=== PATIENT | female | born 1980 | race Caucasian/White ===

== ENCOUNTER 2016-07-17 21:19 | Emergency (ER) | payer OTHER ==
[2016-07-17 21:25] VITALS: BP 122/68; PULSE 81; TEMP 98.2; BMI 22.4
[2016-07-17] MEDS ORDERED: SULFAMETHOXAZOLE/TRIMETHOPRIM 800MG/160MG D.S. TABLET PO ONE (21:53)
--- NOTE | 2016-07-17 21:53 | PDOC ---
History of Present Illness - General Chief Complaint: Wound Stated Complaint: RT LEG PAIN Time Seen by Provider: 07/17/16 21:23 History Source: Patient Exam Limitations: No Limitations - History of Present Illness Initial Comments: This is a 36-year-old female who comes in complaining of a abscess secondary to an infected ingrown hair in her right inner thigh area. Patient said that she was able to remove the ingrown hair and express a fair amount of pus from the area. However patient said it is still very painful so she comes in for evaluation and possible incision and drainage of the area. Patient denies any fevers or chills. Patient is otherwise healthy. PAST MEDICAL HISTORY: no significant history PAST SURGICAL HISTORY: no significant history FAMILY HISTORY: no pertinant history SOCIAL HISTORY: Pt lives with family and is employed. MEDICATIONS: reviewed ALLERGIES: As per nursing notes Review of Systems General: No fevers or chills, no weakness, no weight loss HEENT: No change in vision. No sore throat,. No ear pain CardioVascular: No chest pain or shortness of breath Respiratory:No cough, or wheezing. Gastrointestinal: no nausea, vomitting, diarrhea or constipation, No rectal bleeding Genitourinary: No dysuria, hematuria, or frequency Musculoskeletal: No joint or muscle pain or swelling Neurologic: No headache, vertigo, dizziness or loss of consciousness Psychiatric: nor depression Skin: Inner thigh abscess Endocrine: no increased thirst or abnormal weight change Allergic: no skin or latex allergy All other systems reviewed and normal GENERAL: The patient is awake, alert, and fully oriented, in no acute distress. HEAD: Normal with no signs of trauma. EYES: Pupils equal, round and reactive to light, extraocular movements intact, sclera anicteric, conjunctiva clear. EXTREMITIES: Normal range of motion, no edema. Right inner thigh area there is a pointing abscess in the upper inner thigh area with some palpable collection. NEUROLOGICAL: Normal speech, normal gait. PSYCH: Normal mood, normal affect. SKIN: Warm, Dry, normal turgor, no rashes or lesions noted. Procedure incision and drainage of abscess Skin overlying the abscess was cleaned with Betadine and then anesthetized with 1% lidocaine no epinephrine via local injection Scalpel was used to open the abscess cavity with only a small amount of purulence expressed. Loculations were broken up and abscess cavity was packed with iodoform gauze. Sterile dressing was applied. Assessment and plan: This is a 36-year-old female with a superficial skin abscess secondary to an infected hair follicle. Abscess was incised and drained and packing placed in the cavity. Patient given instructions for follow-up removal of the packing and care of the infection. Patient discharged home. Past History - Past Medical History Allergies/Adverse Reactions: Allergies Allergy/AdvReac Type Severity Reaction Status Date / Time No Known Allergies Allergy Verified 07/17/16 21:20 Home Medications: Ambulatory Orders Sulfamethoxazole/Trimethoprim [Bactrim DS -] 1 tab PO BID #14 tablet 07/17/16 Other medical history: DENIES - Immunization History Immunization Up to Date: Yes - Psycho/Social/Smoking Cessation Hx Anxiety: No Suicidal Ideation: No Smoking Status: No Smoking History: Former smoker Have you smoked in the past 12 months: No Number of Cigarettes Smoked Daily: 0 Information on smoking cessation initiated: No 'Breaking Loose' booklet given: 04/09/15 Hx Alcohol Use: No Drug/Substance Use Hx: No Substance Use Type: None *Physical Exam - Vital Signs Last Vital Signs Temp Pulse Resp BP Pulse Ox 98.2 F 81 19 122/68 99 07/17/16 21:19 07/17/16 21:19 07/17/16 21:19 07/17/16 21:19 07/17/16 21:19 *DC/Admit/Observation/Transfer Diagnosis at time of Disposition: Abscess - Discharge Dispostion Disposition: HOME Condition at time of disposition: Improved - Prescriptions Prescriptions: Sulfamethoxazole/Trimethoprim [Bactrim DS -] 1 tab PO BID #14 tablet - Patient Instructions Printed Discharge Instructions: DI for Skin Abscess Additional Instructions: Tylenol or Motrin as needed for pain. Remove the packing in 24 hours and start hot soaks to the area. Take Bactrim 1 tablet twice a day for 7 days. Return to the emergency department immediately with ANY new, persistent or worsening symptoms. Continue any medications as previously prescribed by your physician. You should follow up with your primary doctor as soon as possible regarding today's emergency department visit. . Please make sure your doctor reviews the results of your emergency evaluation. Thank you for coming to the Emergency Department today for your care. It was a pleasure to see you today. Please note that your evaluation is INCOMPLETE until you follow-up with your doctor.
[2016-07-17] MEDS ORDERED: SULFAMETHOXAZOLE/TRIMETHOPRIM 800MG/160MG D.S. TABLET ONE (21:57)
== END 2016-07-17 22:05 | disposition home or self-care (01) ==
LOC: FER 21:19
DX: L02.415 Cutaneous abscess of right lower limb (principal); Z87.891 Personal history of nicotine dependence
CPT/HCPCS: 99282-25

== ENCOUNTER 2016-07-19 05:46 | Emergency (ER) | payer OTHER ==
[2016-07-19] MEDS ORDERED: DALBAVANCIN HCL 1,500 MG in DEXTROSE 5%-WATER - 500 ML IVPB ONE (05:52)
[2016-07-19 05:54] VITALS: BP 129/69; PULSE 97; TEMP 98.4; BMI 22.4
[2016-07-19] MEDS ORDERED: KETOROLAC TROMETHAMINE 30 MG/1 ML VIAL IVPUSH ONE (05:56)
--- NOTE | 2016-07-19 05:58 | PDOC ---
History of Present Illness - General Chief Complaint: Revisit,Wound Recheck Stated Complaint: WOUND RECHECK Time Seen by Provider: 07/19/16 05:52 History Source: Patient Exam Limitations: No Limitations - History of Present Illness Initial Comments: 07/19/16 05:54 This is a 36-year-old female who comes in for wound check. And states she is having difficulty tolerating by mouth's. Patient was seen by me yesterday and had incision and drainage of an abscess in her right thigh. Patient remove the packing last night and started hot soaks. Patient is currently taking Bactrim DS for the infection as MRSA is the likely organism. However cultures were not sent at the time of the incision and drainage. 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 Due to the rapid and aggressive nature of the infection MRSA is a concern. PAST MEDICAL HISTORY: no significant history PAST SURGICAL HISTORY: no significant history FAMILY HISTORY: no pertinant history SOCIAL HISTORY: Pt lives with family and is employed. MEDICATIONS: reviewed ALLERGIES: As per nursing notes Review of Systems General: No fevers or chills, no weakness, no weight loss HEENT: No change in vision. No sore throat,. No ear pain CardioVascular: No chest pain or shortness of breath Respiratory:No cough, or wheezing. Gastrointestinal: no nausea, vomitting, diarrhea or constipation, No rectal bleeding Genitourinary: No dysuria, hematuria, or frequency Musculoskeletal: No joint or muscle pain or swelling Neurologic: No headache, vertigo, dizziness or loss of consciousness Psychiatric: nor depression Skin: No rashes or easy bruising Endocrine: no increased thirst or abnormal weight change Allergic: no skin or latex allergy All other systems reviewed and normal GENERAL: The patient is awake, alert, and fully oriented, in no acute distress. HEAD: Normal with no signs of trauma. EYES: Pupils equal, round and reactive to light, extraocular movements intact, sclera anicteric, conjunctiva clear. EXTREMITIES: Normal range of motion, no edema. Right Thigh: There is erythema, warmth and swelling to the area of the abscess. There is no purulence or drainage from the area at this time. There is no ascending lymphangitis. There is no palpable associated vascular cord. Femoral pulses are palpable and normal. NEUROLOGICAL: Normal speech, normal gait. PSYCH: Normal mood, normal affect. SKIN: Warm, Dry, normal turgor, no rashes or lesions noted. Assessment and plan: This is a 36-year-old female who is having difficulty tolerating the by mouth medication that she needs to take for a presumptive MRSA infection of her right thigh. Patient had incision and drainage of the thigh and it is improved but still significantly red, tender, swollen. I see no evidence of systemic spread at this time however in discussion with Dr. Nagy from infectious disease the decision to give her a one-time dose of Dalvance was made. It has the advantage of long-term coverage for MRSA and is a one-time IV dose as she is having difficulty tolerating the by mouth medication. Patient given [place]'s in in the ED and discharged. 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 Past History - Past Medical History Allergies/Adverse Reactions: Allergies Allergy/AdvReac Type Severity Reaction Status Date / Time No Known Allergies Allergy Verified 07/19/16 05:48 Home Medications: Ambulatory Orders Sulfamethoxazole/Trimethoprim [Bactrim DS -] 1 tab PO BID #14 tablet 07/17/16 - Immunization History Immunization Up to Date: Yes - Psycho/Social/Smoking Cessation Hx Anxiety: No Suicidal Ideation: No Smoking Status: No Smoking History: Former smoker Have you smoked in the past 12 months: No Number of Cigarettes Smoked Daily: 0 'Breaking Loose' booklet given: 04/09/15 Hx Alcohol Use: No Drug/Substance Use Hx: No Substance Use Type: None *DC/Admit/Observation/Transfer Diagnosis at time of Disposition: Abscess - Discharge Dispostion Disposition: HOME Condition at time of disposition: Good - Patient Instructions Additional Instructions: Return to the emergency department immediately with ANY new, persistent or worsening symptoms. Continue any medications as previously prescribed by your physician. You should follow up with your primary doctor as soon as possible regarding today's emergency department visit. . Please make sure your doctor reviews the results of your emergency evaluation. Thank you for coming to the Emergency Department today for your care. It was a pleasure to see you today. Please note that your evaluation is INCOMPLETE until you follow-up with your doctor.
== END 2016-07-19 07:01 | disposition home or self-care (01) ==
LOC: FER 05:46
PROC: 3E03329 Introduction of Other Anti-infective into Peripheral Vein, Percutaneous Approach (ICD-10-PCS; principal; 2016-07-19)
PROC: 3E0333Z Introduction of Anti-inflammatory into Peripheral Vein, Percutaneous Approach (ICD-10-PCS; 2016-07-19)
DX: L02.91 Cutaneous abscess, unspecified (principal); Z87.891 Personal history of nicotine dependence
CPT/HCPCS: 99281-25; J0875

== ENCOUNTER 2017-05-03 20:55 | Emergency (ER) | payer OTHER ==
--- NOTE | 2017-05-03 20:58 | PDOC ---
History of Present Illness - General History Source: Patient Exam Limitations: No Limitations - History of Present Illness Initial Comments: 05/03/17 21:30 36 year old female, with no significant past medical history, who presents to the emergency room complaining of 4 days of fever, sore throat, right ear ache, dry cough, and body aches. The patient states that the fever was 100.9 at its highest. She reports that her son was recently sick with Strep throat. Denies nausea, vomiting. Allergies: NKA PCP: None <Yoana Ferrell - Last Filed: 05/03/17 21:30> <Sarahi Anguiano - Last Filed: 05/04/17 03:45> - General Chief Complaint: Pain, Acute Stated Complaint: SORE THROAT Time Seen by Provider: 05/03/17 20:58 Past History <Yoana Ferrell - Last Filed: 05/03/17 21:30> - Immunization History Immunization Up to Date: Yes - Suicide/Smoking/Psychosocial Hx Smoking Status: No Smoking History: Former smoker Have you smoked in the past 12 months: No Number of Cigarettes Smoked Daily: 0 'Breaking Loose' booklet given: 04/09/15 Hx Alcohol Use: No Drug/Substance Use Hx: No Substance Use Type: None <Sarahi Anguiano - Last Filed: 05/04/17 03:45> - Past Medical History Allergies/Adverse Reactions: Allergies Allergy/AdvReac Type Severity Reaction Status Date / Time No Known Allergies Allergy Verified 05/03/17 20:59 Home Medications: Ambulatory Orders Acetaminophen [Tylenol -] 1,500 mg PO Q6H 05/03/17 Azithromycin 250 mg PO DAILY #4 tablet 05/03/17 Review of Systems - Review of Systems Able to Perform ROS?: Yes Comments:: 05/03/17 21:31 GENERAL/CONSTITUTIONAL: +fever. No chills. No weakness. HEAD, EYES, EARS, NOSE AND THROAT: +Sore throat, +right ear ache, No change in vision. No ear discharge. CARDIOVASCULAR: No chest pain or shortness of breath. RESPIRATORY: +dry cough. No wheezing, or hemoptysis. GASTROINTESTINAL: No nausea, vomiting, diarrhea or constipation. GENITOURINARY: No dysuria, frequency, or change in urination. MUSCULOSKELETAL: No joint or muscle swelling or pain. No neck or back pain. SKIN: No rash NEUROLOGIC: No headache, vertigo, loss of consciousness, or change in strength/ sensation. ENDOCRINE: No increased thirst. No abnormal weight change. HEMATOLOGIC/LYMPHATIC: No anemia, easy bleeding, or history of blood clots. ALLERGIC/IMMUNOLOGIC: No hives or skin allergy. <Yoana Ferrell - Last Filed: 05/03/17 21:30> *Physical Exam - Vital Signs Last Vital Signs Temp Pulse Resp BP Pulse Ox 100.9 F H 103 H 20 129/79 99 05/03/17 20:56 05/03/17 20:56 05/03/17 20:56 05/03/17 20:56 05/03/17 20:56 - Physical Exam Comments: 05/03/17 21:32 GENERAL: Awake, alert, and fully oriented, in no acute distress HEAD: No signs of trauma EYES: PERRLA, EOMI, sclera anicteric, conjunctiva clear ENT: Auricles normal inspection, hearing grossly normal, nares patent, + moderate erythema of the pharynx without exudates or edema.+ Mild right maxillary sinus tenderness. Moist mucosa NECK: +Bilateral tender,enlarged cervical lymphadenopathy. Normal ROM, supple, no, JVD, or masses LUNGS: Breath sounds equal, clear to auscultation bilaterally. No wheezes, and no crackles HEART: Regular rate and rhythm, normal S1 and S2, no murmurs, rubs or gallops ABDOMEN: Soft, nontender, normoactive bowel sounds. No guarding, no rebound. No masses EXTREMITIES: Normal range of motion, no edema. No clubbing or cyanosis. No cords, erythema, or tenderness NEUROLOGICAL: Cranial nerves II through XII grossly intact. Normal speech, normal gait SKIN: Warm, Dry, normal turgor, no rashes or lesions noted. <Yoana Ferrell - Last Filed: 05/03/17 21:30> ED Treatment Course - ADDITIONAL ORDERS Additional order review: 05/03/17 21:00 Group A Strep Rapid Antigen - Final Throat NEGATIVE FOR THE ANTIGEN OF BETA HEMOLYTIC STREP GROUP A - Medications Given in the ED: ED Medications Discontinued Medications Generic Name Dose Route Start Last Admin Trade Name Freq PRN Reason Stop Dose Admin Azithromycin 500 mg 05/03/17 21:25 05/03/17 21:29 Zithromax - PO 12/11/17 21:26 500 mg ONCE ONE Administration Ibuprofen 600 mg 05/03/17 21:24 05/03/17 21:29 Motrin - PO 05/03/17 21:25 600 mg ONCE ONE Administration <Yoana Ferrell - Last Filed: 05/03/17 21:30> Medical Decision Making - Medical Decision Making Documentation has been prepared under my direction and personally reviewed by me in its entirety. I attest that this documented accurately reflects all work, treatment, procedures and medical decision making performed by me. As noted above, this 36-year-old woman presents with progressive sore throat and fever for the last few days. Of note, patient's son and his girlfriend have had strep pharyngitis very recently. Exam notable for fever and erythematous pharynx with bilateral tender lymphadenopathy. Although quick strep negative, will empirically start azithromycin (Z-[id number]). No work for the next 48 hours. Throat culture pending Patient should hydrate carefully and rest, continuing antibiotic treatment as prescribed. She should return to the emergency room if she has worsening pain/ difficulty swallowing, persistent high fever. <Sarahi Anguiano - Last Filed: 05/04/17 03:45> *DC/Admit/Observation/Transfer - Attestations Scribe Attestion: 05/03/17 21:32 Documentation prepared by JORDY Baum, acting as medical staff manager for Sarahi Anguiano MD. <Yoana Ferrell - Last Filed: 05/03/17 21:30> <Sarahi Anguiano - Last Filed: 05/04/17 03:45> Diagnosis at time of Disposition: Acute pharyngitis Qualifiers: Pharyngitis/tonsillitis etiology: unspecified etiology Qualified Code(s): J02.9 - Acute pharyngitis, unspecified - Discharge Dispostion Disposition: HOME Condition at time of disposition: Stable - Prescriptions Prescriptions: Azithromycin 250 mg PO DAILY #4 tablet - Patient Instructions Printed Discharge Instructions: DI for Pharyngitis/Tonsillopharyngitis -- Adult Additional Instructions: Drink plenty of fluids;rest Motrin/Tylenol as needed for pain Azithromycin 250 mg daily for the next 4 days No work for the next 2 days - Post Discharge Activity Forms/Work/School Notes: Back to Work
[2017-05-03 21:06] VITALS: BP 129/79; PULSE 103; TEMP 100.9; BMI 23.3
[2017-05-03] MEDS ORDERED: IBUPROFEN 600 MG TABLET (FP) PO ONE ×2 (21:22→21:24)
[2017-05-03] MEDS ORDERED: AZITHROMYCIN 250 MG TABLET ONE (21:22)
[2017-05-03] MEDS ORDERED: AZITHROMYCIN 250 MG TABLET PO ONE (21:25)
== END 2017-05-03 21:36 | disposition home or self-care (01) ==
LOC: FER 20:55
DX: J02.9 Acute pharyngitis, unspecified (principal)
CPT/HCPCS: 87070; 87430; 99282-25

== ENCOUNTER 2018-06-29 19:22 | Emergency (ER) | payer OTHER ==
[2018-06-29 19:30] VITALS: TEMP 97.7; BMI 24.0
[2018-06-29] MEDS ORDERED: diphenhydrAMINE HCL 50 MG CAPSULE ONE (19:41)
[2018-06-29] MEDS ORDERED: diphenhydrAMINE HCL 25 MG CAPSULE (FP) PO ONE (19:43)
[2018-06-29] MEDS ORDERED: predniSONE 20 MG TABLET (UD) PO ONE (20:18)
[2018-06-29] MEDS ORDERED: predniSONE 10 MG TABLET (UD) ONE (20:21)
[2018-06-29] MEDS ORDERED: FAMOTIDINE 20 MG TABLET PO ONE (20:21)
[2018-06-29] MEDS ORDERED: FAMOTIDINE 20 MG TABLET ONE (20:21)
--- NOTE | 2018-06-29 21:24 | PDOC ---
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 Pt reports chest and b/l UE hives, facial itching, lip swelling possibly due to contact with disinfecting wipes. Pt denies nausea, vomiting, abd pain, throat closing, CP, SOB, or weakness. Reports similar reaction to purple wipes a few years ago, but has since used them without reaction. Pt has been in usual state of good health, denies recent fevers, chills, headaches. Past History - Past Medical History Allergies/Adverse Reactions: Allergies Allergy/AdvReac Type Severity Reaction Status Date / Time No Known Allergies Allergy Verified 06/29/18 19:23 Home Medications: Ambulatory Orders NK [No Known Home Medication] 06/29/18 COPD: No - Reproductive History Polycystic Ovaries: Yes Therapeutic (s) & number: No - Immunization History Immunization Up to Date: Yes - Suicide/Smoking/Psychosocial Hx Smoking Status: No Smoking History: Never smoked Have you smoked in the past 12 months: No Number of Cigarettes Smoked Daily: 2 Information on smoking cessation initiated: No 'Breaking Loose' booklet given: 12/06/17 Hx Alcohol Use: No Drug/Substance Use Hx: No Substance Use Type: None Review of Systems - Review of Systems Comments:: 06/29/18 21:24 "GENERAL/CONSTITUTIONAL: No fever or chills. No weakness. HEAD, EYES, EARS, NOSE AND THROAT: No change in vision. No ear pain or discharge. No sore throat. CARDIOVASCULAR: No chest pain, no shortness of breath, no loss of consciousness RESPIRATORY: No cough, wheezing, or hemoptysis. GASTROINTESTINAL: No nausea, vomiting, diarrhea or constipation. GENITOURINARY: No dysuria, frequency, or change in urination. MUSCULOSKELETAL: No joint or muscle swelling or pain. No neck or back pain. SKIN: Hives to chest and arms, facial itching NEUROLOGIC: No vertigo, no change in strength/sensation. ENDOCRINE: No increased thirst. No abnormal weight change. HEMATOLOGIC/LYMPHATIC: No anemia, easy bleeding, or history of blood clots. ALLERGIC/IMMUNOLOGIC: No hives or skin allergy. *Physical Exam - Vital Signs Last Vital Signs Temp Pulse Resp BP Pulse Ox 97.7 F 96 H 20 137/94 99 06/29/18 19:23 06/29/18 19:23 06/29/18 19:23 06/29/18 19:23 06/29/18 19:23 - Physical Exam Comments: 06/29/18 21:25 "GENERAL: Awake, alert, and fully oriented, in no acute distress. HEAD: No signs of trauma EYES: PERRLA, EOMI, sclera anicteric, conjunctiva clear ENT: No tongue or lip swelling, Auricles normal inspection, hearing grossly normal, nares patent, oropharynx clear without exudates. Moist mucosa NECK: Nontender, no stepoffs, Normal ROM, supple, no lymphadenopathy, JVD, or masses LUNGS: no stridor, Breath sounds equal, clear to auscultation bilaterally. No wheezes, and no crackles HEART: Regular rate and rhythm, normal S1 and S2, no murmurs, rubs or gallops ABDOMEN: Soft, nontender, normoactive bowel sounds. No guarding, no rebound. No masses EXTREMITIES: Normal range of motion, no edema. No clubbing or cyanosis. No cords, erythema, or tenderness NEUROLOGICAL: Cranial nerves II through XII intact. 5/5 strength and sensation in all extremities, Normal speech, normal gait, normal cerebellar function SKIN: + hives to chest and arms, mild flushing to face Moderate Sedation - Procedure Monitoring Vital Signs: Procedure Monitoring Vital Signs Temperature 97.7 F 06/29/18 19:23 Pulse Rate 96 H 06/29/18 19:23 Respiratory Rate 20 06/29/18 19:23 Blood Pressure 137/94 06/29/18 19:23 O2 Sat by Pulse Oximetry (%) 99 06/29/18 19:23 ED Treatment Course - Medications Given in the ED: ED Medications Discontinued Medications Generic Name Dose Route Start Last Admin Trade Name Freq PRN Reason Stop Dose Admin Diphenhydramine HCl 50 mg 06/29/18 19:43 06/29/18 19:44 Benadryl - PO 06/29/18 19:44 50 mg ONCE ONE Administration Famotidine 20 mg 06/29/18 20:21 06/29/18 20:22 Pepcid - PO 06/29/18 20:22 20 mg ONCE ONE Administration Prednisone 50 mg 06/29/18 20:18 06/29/18 20:22 Deltasone - PO 06/29/18 20:19 50 mg ONCE ONE Administration Medical Decision Making - Medical Decision Making 06/29/18 21:26 38 F with allergic reaction, possibly to disinfecting wipes. No evidence of airway involvement. - Prednisone, benadryl, pepcid 06/29/18 21:26 Pt reassessed after 2 hours, now has complete resolution of hives and facial itching. Pt is well appearing, with normal vitals. Clinically stable for DC at this time. I discussed the physical exam findings, ancillary test results and final diagnoses with the patient. I answered all of the patient's questions. The patient was satisfied with the care received and felt comfortable with the discharge plan and treatment plan. The patient agrees to follow up with the primary care physician within 24-72 hours. *DC/Admit/Observation/Transfer Diagnosis at time of Disposition: Allergic reaction - Discharge Dispostion Disposition: HOME - Referrals - Patient Instructions Printed Discharge Instructions: DI for General Allergic Reactions Additional Instructions: Follow up with an equipment installation professional for further testing. If you experience worsening rash, lip swelling, hoarseness, difficulty breathing , or any other concerning symptoms, return to the ER immediately. - Post Discharge Activity - Attestations Physician Attestion: 06/29/18 21:27 I, Dr. Jr Diaz MD, attest that this document has been prepared under my direction and personally reviewed by me in its entirety. I further attest, that it accurately reflects all work, treatment, procedures and medical decision -making performed by me.
[2018-06-29 21:35] VITALS: BP 128/67; PULSE 72
== END 2018-06-29 21:36 | disposition home or self-care (01) ==
LOC: FER 19:22
DX: T78.40XA Allergy, unspecified, initial encounter (principal); X58.XXXA Exposure to other specified factors, initial encounter
CPT/HCPCS: 99282-25

== ENCOUNTER 2018-06-30 20:19 | Emergency (ER) | payer OTHER ==
[2018-06-30] MEDS ORDERED: SODIUM CHLORIDE 1,000 ML IV STA (20:22)
[2018-06-30 20:28] VITALS: BP 130/90; PULSE 101; TEMP 98.2; BMI 23.3
--- NOTE | 2018-06-30 20:55 | PDOC ---
History of Present Illness - General Chief Complaint: Pain Stated Complaint: LEG & HIP PAIN Time Seen by Provider: 06/30/18 20:20 - History of Present Illness Initial Comments: 07/01/18 06:39 38yo F hx migraines presents to the ED with b/l proximal LE pain since this morning. Pt states pain is dull, extending from her groin to her knees anteriorly. Pt denies any trauma or falls. States pain improves with pressure to the LE's b/l. Denies any strenuous activity recently, dark urine. Pt has been taking PO benadryl and nyquil today as she had an allergic reaction yesterday. Denies urine retention. She also took prenisone 50mg yesterday for the allergic reaction. Reports gradual onset bitemporal headache as well since this morning. Denies fevers, chills, cp, sob, abd pain, focal weakness/ numbness. Past History - Past Medical History Allergies/Adverse Reactions: Allergies Allergy/AdvReac Type Severity Reaction Status Date / Time No Known Allergies Allergy Verified 06/30/18 20:26 Home Medications: Ambulatory Orders NK [No Known Home Medication] 06/29/18 COPD: No Other medical history: Pt denies - Reproductive History Polycystic Ovaries: Yes Therapeutic (s) & number: No - Immunization History Immunization Up to Date: Yes - Suicide/Smoking/Psychosocial Hx Smoking Status: No Smoking History: Current every day smoker Have you smoked in the past 12 months: Yes Number of Cigarettes Smoked Daily: 2 Information on smoking cessation initiated: No 'Breaking Loose' booklet given: 12/06/17 Hx Alcohol Use: No Drug/Substance Use Hx: No Substance Use Type: None Review of Systems - Review of Systems Comments:: 07/01/18 06:44 GENERAL/CONSTITUTIONAL: No fever or chills. No weakness. HEAD, EYES, EARS, NOSE AND THROAT: No change in vision. No ear pain or discharge. No sore throat. GASTROINTESTINAL: No nausea, vomiting, diarrhea or constipation. GENITOURINARY: No dysuria, frequency, or change in urination. CARDIOVASCULAR: No chest pain or shortness of breath. RESPIRATORY: No cough, wheezing, or hemoptysis. MUSCULOSKELETAL: +LE pain b/l. No neck or back pain. SKIN: No rash NEUROLOGIC: No headache, vertigo, loss of consciousness, or change in strength/ sensation. ENDOCRINE: No increased thirst. No abnormal weight change. HEMATOLOGIC/LYMPHATIC: No anemia, easy bleeding, or history of blood clots. ALLERGIC/IMMUNOLOGIC: No hives or skin allergy. *Physical Exam - Vital Signs Last Vital Signs Temp Pulse Resp BP Pulse Ox 98.2 F 101 H 18 130/90 98 06/30/18 20:26 06/30/18 20:26 06/30/18 20:26 06/30/18 20:26 06/30/18 20:26 - Physical Exam Comments: 07/01/18 06:46 GENERAL: Awake, alert, and fully oriented, in no acute distress EYES: PERRLA, EOMI, sclera anicteric, conjunctiva clear ENT: Nares patent, oropharynx clear without exudates. Moist mucosa LUNGS: Breath sounds equal, clear to auscultation bilaterally. No wheezes, and no crackles HEART: Regular rate and rhythm, normal S1 and S2, no murmurs, rubs or gallops ABDOMEN: Soft, nontender, normoactive bowel sounds. No guarding, no rebound. No masses EXTREMITIES: Normal range of motion, no edema. No cords, erythema, deformities or tenderness NEUROLOGICAL: Normal speech, cranial nerves intact, equal strength and sensation b/l SKIN: Warm, Dry, normal turgor, no rashes or lesions noted. Moderate Sedation - Procedure Monitoring Vital Signs: Procedure Monitoring Vital Signs Temperature 98.2 F 06/30/18 20:26 Pulse Rate 101 H 06/30/18 20:26 Respiratory Rate 18 06/30/18 20:26 Blood Pressure 130/90 06/30/18 20:26 O2 Sat by Pulse Oximetry (%) 98 06/30/18 20:26 ED Treatment Course - LABORATORY CBC & Chemistry Diagram: 06/30/18 21:50 06/30/18 21:50 Medical Decision Making - Medical Decision Making 07/01/18 06:47 38yo F presents to the ED with b/l atraumatic proximal LE pain. Concern for possible rhabdo. Labs including CBC, CMP, CPK wnl. UA wnl. Pt feels improved after fluids. Symptoms maybe 2/2 recent prednisone use or benadryl use or possible myalgias due to viral syndrome. Pt requests DC home, return precautions given. I discussed the physical exam findings, ancillary test results and final diagnoses with the patient. I answered all of the patient's questions. The patient was satisfied with the care received and felt comfortable with the discharge plan and treatment plan. The patient will call their primary care physician within 24 hours to arrange follow-up and will return to the Emergency Department with any new, persistent or worsening symptoms. *DC/Admit/Observation/Transfer Diagnosis at time of Disposition: Leg pain, bilateral - Discharge Dispostion Disposition: HOME Condition at time of disposition: Good Decision to Admit order: No - Referrals - Patient Instructions - Post Discharge Activity - Attestations Physician Attestion: 06/30/18 23:10 I, Dr. Rosina Romeo MD, attest that this document has been prepared under my direction and personally reviewed by me in its entirety. I further attest, that it accurately reflects all work, treatment, procedures and medical decision -making performed by me.
[2018-06-30 22:07] LABS: BASO % 0.3 % (0-2.0); EOS % 0.9 % (0-4.5); HEMATOCRIT 40.3 % (32.4-45.2); HEMOGLOBIN 13.2 GM/dl (10.7-15.3); LYMPH % 25.8 % (8-40); MCHC 32.7 g/dl (32.0-36.0); MEAN CELL VOLUME 88.7 fl (80-96); MEAN PLT VOLUME 11.6 fl (7.5-11.1); PLATELET COUNT 284 K/MM3 (134-434); RBC 4.55 M/mm3 (3.60-5.2); RDW 12.8 % (11.6-15.6); WHITE BLOOD COUNT 16.9 K/mm3 (4.0-10.8)
[2018-06-30 22:08] LABS: ALBUMIN 3.9 g/dl (3.4-5.0); ALK PHOS 76 U/L (45-117); ANION GAP 6 MMOL/L (8-16); BILIRUBIN,TOTAL 0.4 mg/dl (0.2-1); BLOOD UREA NITROGEN 14 mg/dl (7-18); CALCIUM 9.1 mg/dl (8.5-10); CHLORIDE 104 mmol/L (98-107); CO2 24 mmol/L (21-32); CREATININE 0.7 mg/dl (0.55-1.3); GLUCOSE,RANDOM 118 mg/dl (74-106); MAGNESIUM 1.8 mg/dL (1.8-2.4); POTASSIUM 3.5 mmol/L (3.5-5.1); SGOT/AST 21 U/L (15-37); SGPT/ALT 19 U/L (13-61); SODIUM 134 mmol/L (136-145); TOT PROT 7.4 g/dl (6.4-8.2)
[2018-06-30 23:07] LABS: PH,URINE 5.5 (4.5-8); URINE APPEARANCE Clear; URINE BILIRUBIN Negative (NEGATIVE); URINE COLOR Yellow; URINE GLUCOSE (UA) Negative (NEGATIVE); URINE KETONE Negative (NEGATIVE); URINE LEUK ESTERASE Negative (NEGATIVE); URINE NITRITE Negative (NEGATIVE); URINE PROTEIN Negative (NEGATIVE); URINE UROBILINOGEN 0.2 (0.2-1.0)
[2018-06-30 23:23] LABS: EPI CELLS 1+ /HPF
== END 2018-06-30 23:57 | disposition home or self-care (01) ==
LOC: FER 20:19
PROC: 3E0337Z Introduction of Electrolytic and Water Balance Substance into Peripheral Vein, Percutaneous Approach (ICD-10-PCS; principal; 2018-06-30)
DX: M79.604 Pain in right leg (principal); M79.605 Pain in left leg; F17.210 Nicotine dependence, cigarettes, uncomplicated
CPT/HCPCS: 36415; 80053; 81003; 81015; 82550; 83735; 84443; 85025; 99283-25; J7030

== ENCOUNTER 2018-07-12 09:55 | Emergency (ER) | payer OTHER ==
[2018-07-12 09:59] VITALS: BP 131/69; PULSE 99; TEMP 98.1; BMI 23.1
[2018-07-12] MEDS ORDERED: DEXAMETHASONE 4 MG TABLET (FP) PO ONE (10:06)
[2018-07-12] MEDS ORDERED: diphenhydrAMINE HCL 25 MG CAPSULE (FP) PO ONE (10:06)
[2018-07-12] MEDS ORDERED: diphenhydrAMINE HCL 50 MG CAPSULE ONE (10:08)
[2018-07-12] MEDS ORDERED: DEXAMETHASONE SOD PHOSPHATE 10 MG/1 ML VIAL ONE (10:08)
--- NOTE | 2018-07-12 10:13 | PDOC ---
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 Has history of similar reactions but only at work, no known allergies. never anaphylaxis, has been treated successfully with benadryl/ steroids in the past but no official allergy testing yet. no airway/throat issues. cannot recognize any new exposures at home, possibly associated with cleaning solutions used in the ED by environmental. Past History - Past Medical History Allergies/Adverse Reactions: Allergies Allergy/AdvReac Type Severity Reaction Status Date / Time No Known Allergies Allergy Verified 06/30/18 20:26 COPD: No - Reproductive History Polycystic Ovaries: Yes Therapeutic (s) & number: No - Immunization History Immunization Up to Date: Yes - Suicide/Smoking/Psychosocial Hx Smoking Status: No Smoking History: Current some day smoker Have you smoked in the past 12 months: Yes Number of Cigarettes Smoked Daily: 1 Information on smoking cessation initiated: No 'Breaking Loose' booklet given: 12/06/17 Hx Alcohol Use: No Drug/Substance Use Hx: No Substance Use Type: None Review of Systems - Review of Systems Constitutional: No: Chills, Fever HEENTM: No: Throat Swelling, Difficulty Swallowing Respiratory: No: Cough, Shortness of Breath, Stridor, Wheezing Cardiac (ROS): No: Chest Pain ABD/GI: No: Nausea, Vomiting Neurological: No: Headache All Other Systems: Reviewed and Negative *Physical Exam - Vital Signs Last Vital Signs Temp Pulse Resp BP Pulse Ox 98.1 F 99 H 20 131/69 100 07/12/18 09:56 07/12/18 09:56 07/12/18 09:56 07/12/18 09:56 07/12/18 09:56 - Physical Exam Comments: 07/12/18 10:09 afebrile, normal vs well appearing, nad but itching with blotchy urticaria to chest/back and upper arms, starting to develop slight hive above R eyebrow. op clear, no stridor, voice clear lungs clear, no wheezing heart regular Moderate Sedation - Procedure Monitoring Vital Signs: Procedure Monitoring Vital Signs Temperature 98.1 F 07/12/18 09:56 Pulse Rate 99 H 07/12/18 09:56 Respiratory Rate 20 07/12/18 09:56 Blood Pressure 131/69 07/12/18 09:56 O2 Sat by Pulse Oximetry (%) 100 07/12/18 09:56 Medical Decision Making - Medical Decision Making 07/12/18 10:11 healthy 38y/o F with allergic reaction/dermatitis, possible chemical exposure given isolated incidents at hospital. no airway/breathing issues, HD stable. benadryl, decadron with improved itching/rash outpt allergy testing/referral understands return criteria *DC/Admit/Observation/Transfer Diagnosis at time of Disposition: Allergic reaction Qualifiers: Encounter type: initial encounter Qualified Code(s): T78.40XA - Allergy, unspecified, initial encounter - Discharge Dispostion Disposition: HOME Condition at time of disposition: Stable - Referrals Referrals: Veronika Nieto MD [Staff Physician] - - Patient Instructions Printed Discharge Instructions: DI for General Allergic Reactions Additional Instructions: Activity as tolerated. Stay hydrated. You were given a dose of decadron 10mg in the ER, which is a long-acting steroid. Take Benadryl 50mg every 6-8 hours as needed for persistent itching. You should follow up with a alternative financing specialist/job press feeder as soon as possible regarding today's emergency department visit. Return to the emergency department for any new or concerning symptoms, particularly worsening rash, throat swelling/breathing issues like wheezing. - Post Discharge Activity Forms/Work/School Notes: Back to Work
== END 2018-07-12 10:25 | disposition home or self-care (01) ==
LOC: FER 09:55
DX: T78.40XA Allergy, unspecified, initial encounter (principal); F17.210 Nicotine dependence, cigarettes, uncomplicated
CPT/HCPCS: 99281-25

== ENCOUNTER 2018-12-17 08:06 | Emergency (ER) | payer OTHER ==
--- NOTE | 2018-12-17 08:09 | PDOC ---
History of Present Illness - General Chief Complaint: Nausea/Vomiting Stated Complaint: vertigo,nausea,vomiting Time Seen by Provider: 12/17/18 08:09 History Source: Patient Exam Limitations: No Limitations - History of Present Illness Initial Comments: 38 yo F hx migraines presents with vertiginous symptoms that woke her from sleep this morning. Has had nausea, vomiting x3, unable to find a comfortable position due to severe dizziness. +Prior similar symptoms 1 week ago. No known inciting factors, no ameliorating factors. Past History - Past Medical History Allergies/Adverse Reactions: Allergies Allergy/AdvReac Type Severity Reaction Status Date / Time No Known Allergies Allergy Verified 12/17/18 08:07 Home Medications: Ambulatory Orders NK [No Known Home Medication] 12/17/18 COPD: No - Reproductive History Polycystic Ovaries: Yes Therapeutic (s) & number: No - Immunization History Immunization Up to Date: Yes - Suicide/Smoking/Psychosocial Hx Smoking Status: No Smoking History: Current some day smoker Have you smoked in the past 12 months: Yes Number of Cigarettes Smoked Daily: 1 'Breaking Loose' booklet given: 12/06/17 Hx Alcohol Use: No Drug/Substance Use Hx: No Substance Use Type: None Review of Systems - Review of Systems Able to Perform ROS?: Yes Comments:: GENERAL/CONSTITUTIONAL: No fever or chills. No weakness. HEAD, EYES, EARS, NOSE AND THROAT: No change in vision. No ear pain or discharge. No sore throat. CARDIOVASCULAR: No chest pain or shortness of breath. RESPIRATORY: No cough, wheezing, or hemoptysis. GASTROINTESTINAL: +Nausea and vomiting. No diarrhea or constipation. GENITOURINARY: No dysuria, frequency, or change in urination. MUSCULOSKELETAL: No joint or muscle swelling or pain. No neck or back pain. SKIN: No rash. NEUROLOGIC: No headache, vertigo, loss of consciousness, or change in strength/ sensation. ENDOCRINE: No increased thirst. No abnormal weight change. HEMATOLOGIC/LYMPHATIC: No anemia, easy bleeding, or history of blood clots. ALLERGIC/IMMUNOLOGIC: No hives or skin allergy. *Physical Exam - Physical Exam Comments: GENERAL: Awake, alert, and fully oriented, in no acute distress HEAD: No signs of trauma EYES: PERRLA, EOMI, sclera anicteric, conjunctiva clear ENT: Auricles normal inspection, hearing grossly normal, nares patent, oropharynx clear without exudates. Dry mucosa NECK: Normal ROM, supple, no lymphadenopathy, JVD, or masses LUNGS: Breath sounds equal, clear to auscultation bilaterally. No wheezes, and no crackles HEART: Regular rate and rhythm, normal S1 and S2, no murmurs, rubs or gallops ABDOMEN: Soft, nontender, normoactive bowel sounds. No guarding, no rebound. No masses EXTREMITIES: Normal range of motion, no edema. No clubbing or cyanosis. No cords, erythema, or tenderness NEUROLOGICAL: Cranial nerves II through XII grossly intact. Normal speech, normal gait. Motor and sensation intact SKIN: Warm, dry, normal turgor, no rashes or lesions noted. ED Treatment Course - LABORATORY CBC & Chemistry Diagram: 12/17/18 08:13 12/17/18 08:13 Medical Decision Making - Medical Decision Making 12/17/18 09:20 Pt reports improvement. Tolerating PO. Stable for DC home. *DC/Admit/Observation/Transfer Diagnosis at time of Disposition: Vertigo - Discharge Dispostion Disposition: HOME Condition at time of disposition: Stable Decision to Admit order: No - Referrals - Patient Instructions - Post Discharge Activity
[2018-12-17 08:10] VITALS: BMI 23.3
[2018-12-17] MEDS ORDERED: DEXTROSE 5%-NORMAL SALINE 1,000 ML IV ONE (08:10)
[2018-12-17] MEDS ORDERED: ONDANSETRON 4 MG/2 ML VIAL IVPUSH ONE (08:10)
[2018-12-17] MEDS ORDERED: ONDANSETRON 4 MG/2 ML VIAL ONE (08:12)
[2018-12-17] MEDS ORDERED: METOCLOPRAMIDE HCL INJECTION 10 MG/2 ML VIAL IVPB ONE (08:16)
[2018-12-17] MEDS ORDERED: METOCLOPRAMIDE HCL INJECTION 10 MG/2 ML VIAL ONE (08:18)
[2018-12-17 08:30] LABS: BASO % 0.9 % (0-2.0); EOS % 1.7 % (0-4.5); HEMOGLOBIN 14.4 GM/dl (10.7-15.3); LYMPH % 17.8 % (8-40); MCH 29.7 pg (25.7-33.7); MCHC 33.4 g/dl (32.0-36.0); MEAN PLT VOLUME 11.4 fl (7.5-11.1); MONO % 7.9 % (3.8-10.2); NEUT % 71.7 % (42.8-82.8); PLATELET COUNT 321 K/MM3 (134-434); RBC 4.84 M/mm3 (3.60-5.2); RDW 12.5 % (11.6-15.6); WHITE BLOOD COUNT 11.1 K/mm3 (4.0-10.8)
[2018-12-17 08:51] VITALS: BP 119/90; PULSE 89; TEMP 98.2
[2018-12-17 08:53] LABS: ALBUMIN 4.2 g/dl (3.4-5.0); BILIRUBIN,TOTAL 0.7 mg/dl (0.2-1); CALCIUM 9.4 mg/dl (8.5-10); CREATININE 0.7 mg/dl (0.55-1.3); POTASSIUM 3.8 mmol/L (3.5-5.1); TOT PROT 7.7 g/dl (6.4-8.2)
[2018-12-17] MEDS ORDERED: MECLIZINE HCL 25 MG TABLET (FP) PO ONE (09:04)
[2018-12-17] MEDS ORDERED: MECLIZINE HCL 25 MG TABLET (FP) ONE (09:06)
== END 2018-12-17 09:23 | disposition home or self-care (01) ==
LOC: FER 08:06
PROC: 3E033GC Introduction of Other Therapeutic Substance into Peripheral Vein, Percutaneous Approach (ICD-10-PCS; principal; 2018-12-17)
DX: R42 Dizziness and giddiness (principal); F17.210 Nicotine dependence, cigarettes, uncomplicated
CPT/HCPCS: 36415; 80053; 83690; 84703; 85025; 99283-25

== ENCOUNTER 2019-01-10 20:46 | Emergency (ER) | payer OTHER ==
[2019-01-10 20:57] VITALS: BP 154/97; PULSE 123; TEMP 98.3; BMI 23.3
--- NOTE | 2019-01-10 21:09 | PDOC ---
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 He also has over the last several weeks been having myalgias and arthralgias. Patient recently had a bout of vertigo that was treated with meclizine but also associated with a migraine. Patient is had workup for her myalgias and arthralgias juices including a sedimentation rate CBC and comp all of which were towards the upper limit of normal. Patient denies any fevers or chills. Patient is unaware of any recent tick bites however does spend a fair amount of time and the [facility] where ticks are endemic. Allergies: as per nursing notes Past Medical History: none Social history: Lives with family. No smoking. No alcohol. No illicit drugs. Surgical history: None General: No fevers or chills, no weakness, no weight loss HEENT: No change in vision. No sore throat,. No ear pain CardioVascular: no chest discomfort. No shortness of breath Respiratory:No cough, or wheezing. Gastrointestinal: no nausea, vomiting, diarrhea or constipation, No rectal bleeding Genitourinary: No dysuria, hematuria, or frequency Musculoskeletal: Arthralgias and myalgias Neurologic: + headache, + vertigo, dizziness or loss of consciousness Psychiatric: nor depression Skin: No rashes or easy bruising Endocrine: no increased thirst or abnormal weight change Allergic: no skin or latex allergy All other systems reviewed and normal Exam: General: Well-nourished well-developed individual, no acute distress HEENT: Throat: Normal, tonsils normal, no erythema or exudate Neck: Supple, no meningeal signs, no lymphadenopathy Eyes::Pupils equal reactive and round, extraocular motion intact Chest: Nontender to palpation Cardiac: S1-S2 normal, regular rate and rhythm, no murmurs rubs or gallops Respiratory: Lungs clear to auscultation bilateral Abdomen: Soft, nondistended, normal bowel sounds, there is no tenderness on palpation diffusely Extremities: Warm, dry, no cyanosis, clubbing, or edema Skin: No rashes Neuro: Alert and oriented x3, CN II - XII intact, nonfocal exam with normal strength, normal sensation, normal reflexes, normal gait, Psych: Normal mood and affect 01/10/19 21:[address] was negative for any acute pathology Past History - Past Medical History Allergies/Adverse Reactions: Allergies Allergy/AdvReac Type Severity Reaction Status Date / Time No Known Allergies Allergy Verified 01/10/19 20:47 Home Medications: Ambulatory Orders NK [No Known Home Medication] 12/17/18 COPD: No Other medical history: MIGRAINE - Reproductive History Polycystic Ovaries: Yes Therapeutic (s) & number: No - Immunization History Immunization Up to Date: Yes - Suicide/Smoking/Psychosocial Hx Smoking Status: No Smoking History: Current every day smoker Have you smoked in the past 12 months: Yes Number of Cigarettes Smoked Daily: 4 Information on smoking cessation initiated: Yes 'Breaking Loose' booklet given: 12/06/17 Hx Alcohol Use: No Drug/Substance Use Hx: No Substance Use Type: None *Physical Exam - Vital Signs Last Vital Signs Temp Pulse Resp BP Pulse Ox 98.3 F 123 H 20 154/97 97 01/10/19 20:48 01/10/19 20:48 01/10/19 20:48 01/10/19 20:48 01/10/19 20:48 ED Treatment Course - LABORATORY CBC & Chemistry Diagram: 01/10/19 21:45 01/10/19 21:45 *DC/Admit/Observation/Transfer Diagnosis at time of Disposition: Vertigo Migraine Qualifiers: Migraine type: unspecified Status migrainosus presence: without status migrainosus Intractability: not intractable Qualified Code(s): G43.909 - Migraine, unspecified, not intractable, without status migrainosus - Discharge Dispostion Disposition: HOME Condition at time of disposition: Stable Decision to Admit order: No - Referrals Referrals: Neville Benson MD [Staff Physician] - - Patient Instructions Additional Instructions: Take meclizine 1 tablet as often as every 4-6 hours as needed for vertigo. Take Zofran 1 tablet as often as every 6-8 hours as needed for nausea. Follow-up with Dr. Fabian neurology. Return to the emergency department immediately with ANY new, persistent or worsening symptoms. Continue any medications as previously prescribed by your physician. You should follow up with your primary doctor as soon as possible regarding today's emergency department visit. . Please make sure your doctor reviews the results of your emergency evaluation. Thank you for coming to the Emergency Department today for your care. It was a pleasure to see you today. Please note that your evaluation is INCOMPLETE until you follow-up with your doctor. - Post Discharge Activity Forms/Work/School Notes: Back to Work
[2019-01-10] MEDS ORDERED: KETOROLAC TROMETHAMINE 30 MG/1 ML VIAL IVPUSH ONE (21:11)
[2019-01-10] MEDS ORDERED: MECLIZINE HCL 25 MG TABLET (FP) PO ONE (21:11)
[2019-01-10] MEDS ORDERED: ONDANSETRON 4 MG/2 ML VIAL IVPUSH ONE (21:11)
[2019-01-10] MEDS ORDERED: ONDANSETRON 4 MG TABLET PO ONE (21:30)
[2019-01-10] MEDS ORDERED: MECLIZINE HCL 25 MG TABLET (FP) ONE (21:30)
[2019-01-10] MEDS ORDERED: KETOROLAC TROMETHAMINE 30 MG/1 ML VIAL ONE (21:30)
[2019-01-10] MEDS ORDERED: ONDANSETRON *ODT* 4 MG TABLET SL ONE (21:51)
[2019-01-10] MEDS: ONDANSETRON 4 MG/2 ML VIAL IVPB ONE ×2 (21:53)
[2019-01-10 22:20] LABS: BASO % 0.8 % (0-2.0); HEMATOCRIT 39.8 % (32.4-45.2); HEMOGLOBIN 13.4 GM/dl (10.7-15.3); LYMPH % 25.8 % (8-40); MCH 29.9 pg (25.7-33.7); MCHC 33.6 g/dl (32.0-36.0); MEAN CELL VOLUME 89.1 fl (80-96); MEAN PLT VOLUME 11.3 fl (7.5-11.1); MONO % 5.5 % (3.8-10.2); NEUT % 65.9 % (42.8-82.8); PLATELET COUNT 266 K/MM3 (134-434); RBC 4.47 M/mm3 (3.60-5.2); RDW 12.6 % (11.6-15.6); WHITE BLOOD COUNT 13.9 K/mm3 (4.0-10.8)
[2019-01-10 22:24] LABS: ALBUMIN 4.2 g/dl (3.4-5.0); BILIRUBIN,TOTAL 0.3 mg/dl (0.2-1); CALCIUM 9.7 mg/dl (8.5-10); CREATININE 0.7 mg/dl (0.55-1.3); POTASSIUM 3.8 mmol/L (3.5-5.1); TOT PROT 7.6 g/dl (6.4-8.2)
[2019-01-19 14:12] LABS: DRVVT - 40.6 sec (0.0-47.0)
== END 2019-01-10 22:10 | disposition home or self-care (01) ==
LOC: FER 20:46
PROC: 3E0333Z Introduction of Anti-inflammatory into Peripheral Vein, Percutaneous Approach (ICD-10-PCS; principal; 2019-01-10)
DX: R42 Dizziness and giddiness (principal); G43.909 Migraine, unspecified, not intractable, without status migrainosus; F17.210 Nicotine dependence, cigarettes, uncomplicated
CPT/HCPCS: 36415; 70450-TC; 80053; 84436; 84443; 84479; 85025; 85613; 85651; 85732; 86140; 86431; 86618; 99283-25; Q0162

== ENCOUNTER 2019-02-20 23:02 | Emergency (ER) | payer OTHER ==
[2019-02-20 23:10] VITALS: BP 151/90; PULSE 88; TEMP 100; BMI 23.3
--- NOTE | 2019-02-20 23:28 | PDOC ---
History of Present Illness - General Chief Complaint: Pain Stated Complaint: SINUS PAIN,FACE SWELLING Time Seen by Provider: 02/20/19 23:09 History Source: Patient Exam Limitations: No Limitations - History of Present Illness Initial Comments: 02/20/19 23:30 01/10/19 21:05 Ms. Carter is a 38 yo female who presents to the ER with a complaint of facial pain Her symptoms actually began with an URI approximately 1 week ago. She was started on Azithromycin which has resulted in a productive cough. Today, pt noted sinus pain and congestion as well as facial swelling She has noted fevers, chills She has had a post nasal drip No throat pain No nausea, vomiting, diarrhea No myalgias (+) ill contacts Allergies: as per nursing notes Past Medical History: Migraines, Vertigo Social history: Lives with family. No smoking. Social alcohol. No illicit drugs. ROS: General: Yes fevers or chills, no weakness HEENT: Yes: Left ear pain, congestion Cardiovascular: Yes: no chest discomfort. No shortness of breath Respiratory: Yes: productive cough, wheezing. Gastrointestinal: no nausea, vomiting, diarrhea Genitourinary: No dysuria, hematuria, or frequency Musculoskeletal: No Arthralgias and myalgias Neurologic: No headache, vertigo, dizziness or loss of consciousness Skin: No rashes or easy bruising Endocrine: no increased thirst or abnormal weight change Exam: General: Well-nourished well-developed individual, no acute distress HEENT: Throat: tonsils normal, (+) pharyngeal erythema, maxillary sinus tenderness Neck: Supple, no meningeal signs, (+) lymphadenopathy Eyes::Pupils equal reactive and round, extraocular motion intact Chest: Nontender to palpation Cardiac: S1-S2 normal, regular rate and rhythm, no murmurs rubs or gallops Respiratory: Lungs clear to auscultation bilateral, no wheezing Abdomen: Soft, nondistended, normal bowel sounds, there is no tenderness on palpation diffusely Extremities: Warm, dry, no cyanosis, clubbing, or edema Skin: No rashes Neuro: Alert and oriented x3, CN II - XII intact, nonfocal exam with normal strength, normal sensation, normal reflexes, normal gait, Psych: Normal mood and affect 02/21/19 00:25 Is this a multiple visit Asthma Patient?: No Past History - Past Medical History Allergies/Adverse Reactions: Allergies Allergy/AdvReac Type Severity Reaction Status Date / Time No Known Allergies Allergy Verified 02/20/19 23:03 Home Medications: Ambulatory Orders Amoxicillin/Potassium Clav [Augmentin 875-125 Tablet] 1 each PO BID #20 tablet 02/20/19 Bifidobacterium Infantis [Align] 10.5 mg PO DAILY #30 tab.chew 02/20/19 Fluconazole [Diflucan] 150 mg PO ONCE #5 tablet 02/20/19 Oxymetazoline 0.05% Nasal Soln [Afrin -] 2 spray NS BID #1 spraybtl 02/20/19 Pseudoephedrine HCl [Sudafed] 60 mg PO Q6H PRN #30 tablet 02/20/19 COPD: No - Reproductive History Polycystic Ovaries: Yes Therapeutic (s) & number: No - Immunization History Immunization Up to Date: Yes - Psycho Social/Smoking Cessation Hx Smoking Status: No Smoking History: Current every day smoker Have you smoked in the past 12 months: Yes Number of Cigarettes Smoked Daily: 4 Information on smoking cessation initiated: No 'Breaking Loose' booklet given: 12/06/17 Hx Alcohol Use: No Drug/Substance Use Hx: No Substance Use Type: None *Physical Exam - Vital Signs Last Vital Signs Temp Pulse Resp BP Pulse Ox 100 F H 88 20 151/90 92 L 02/20/19 23:03 02/20/19 23:03 02/20/19 23:03 02/20/19 23:03 02/20/19 23:03 Medical Decision Making - Medical Decision Making 02/21/19 00:30 Pt presents with recently treated UTI Now with facial pain and pressure and fever Will give Augmentin, Sudafed, Afrin, probiotics Monitor for persistent fevers Return to the ER for any worsening symptoms Pt with low grade fevers, has already taken an anti pyretic O2 saturation improves with deep breath Clinical impression URI, initial presentation Sinusitis, initial presentation 02/21/19 00:58 Discharge - Discharge Information Problems reviewed: Yes Clinical Impression/Diagnosis: Sinusitis Qualifiers: Sinusitis location: maxillary Chronicity: acute Recurrence: non-recurrent Qualified Code(s): J01.00 - Acute maxillary sinusitis, unspecified Condition: Stable Disposition: HOME - Admission No - Additional Discharge Information Prescriptions: Amoxicillin/Potassium Clav [Augmentin 875-125 Tablet] 1 each PO BID #20 tablet Bifidobacterium Infantis [Align] 10.5 mg PO DAILY #30 tab.chew Fluconazole [Diflucan] 150 mg PO ONCE #5 tablet Oxymetazoline 0.05% Nasal Soln [Afrin -] 2 spray NS BID #1 spraybtl Pseudoephedrine HCl [Sudafed] 60 mg PO Q6H PRN #30 tablet PRN Reason: congestion Prescription Drug Monitoring Program (I-STOP) results: I-STOP not reviewed - Follow up/Referral - Patient Discharge Instructions Patient Printed Discharge Instructions: Sinusitis (Alternative Therapy), DI for Sinusitis Additional Instructions: Return to the emergency department immediately with ANY new, persistent or worsening symptoms. Continue any medications as previously prescribed by your physician. You should follow up with your primary doctor as soon as possible regarding today's emergency department visit. YOU MUST REST STAY HYDRATED MOTRIN AND TYLENOL NEEDED Please make sure your doctor reviews the results of your emergency evaluation. Thank you for coming to the [facility] today for your care. It was a pleasure to see you today. Please note that your evaluation is INCOMPLETE until you follow-up with your doctor. Come back and see us in the ER if you are not feeling any better - Post Discharge Activity Work/Back to School Note: Back to Work
[2019-02-20] MEDS ORDERED: AMOX TR/POT CLAV 875MG/125MG TABLETS (FP) ONE (23:34)
[2019-02-20] MEDS ORDERED: AMOX TR/POT CLAV 875MG/125MG TABLETS (FP) PO ONE (23:34)
== END 2019-02-20 23:43 | disposition home or self-care (01) ==
LOC: FER 23:02
DX: J01.00 Acute maxillary sinusitis, unspecified (principal); F17.210 Nicotine dependence, cigarettes, uncomplicated
CPT/HCPCS: 99281-25

== ENCOUNTER 2019-05-07 20:38 | Emergency (ER) | payer OTHER ==
[2019-05-07 20:48] VITALS: BP 126/82; PULSE 89; TEMP 98.9; BMI 24.0
[2019-05-07] MEDS ORDERED: DEXAMETHASONE SOD PHOSPHATE 10 MG/1 ML VIAL IVPUSH ONE (20:48)
[2019-05-07] MEDS ORDERED: METOCLOPRAMIDE HCL INJECTION 10 MG/2 ML VIAL IVPUSH ONE (20:48)
[2019-05-07] MEDS ORDERED: DEXAMETHASONE SOD PHOSPHATE 10 MG/1 ML VIAL ONE (20:49)
[2019-05-07] MEDS ORDERED: METOCLOPRAMIDE HCL INJECTION 10 MG/2 ML VIAL ONE (20:49)
--- NOTE | 2019-05-07 21:37 | PDOC ---
Documentation entered by Mary Jo Leon SCRIBE, acting as scribe for Jose L Carbajal MD. Jose L Carbajal MD: This documentation has been prepared by the Carolyn hopkins Sammi, SCRIBE, under my direction and personally reviewed by me in its entirety. I confirm that the documentation accurately reflects all work, treatment, procedures, and medical decision making performed by me. History of Present Illness - General Chief Complaint: Pain, Acute Stated Complaint: HEADACHE,DIZZY - History of Present Illness Initial Comments: 05/07/19 20:41 The patient is a 38 year old female who presents to the ED for evaluation of 2 days of worsening cold like symptoms. The patient complains of waxing and waning fever and intermittent headaches. She reports sick contact as her daughter is sick. She note taking tylenol with short term relief. Past History - Past Medical History Allergies/Adverse Reactions: Allergies Allergy/AdvReac Type Severity Reaction Status Date / Time No Known Allergies Allergy Verified 05/07/19 20:41 Home Medications: Ambulatory Orders NK [No Known Home Medication] 05/07/19 COPD: No - Reproductive History Polycystic Ovaries: Yes Therapeutic (s) & number: No - Immunization History Immunization Up to Date: Yes - Psycho Social/Smoking Cessation Hx Smoking Status: No Smoking History: Current every day smoker Have you smoked in the past 12 months: Yes Number of Cigarettes Smoked Daily: 4 'Breaking Loose' booklet given: 12/06/17 Hx Alcohol Use: No Drug/Substance Use Hx: No Substance Use Type: None Review of Systems - Review of Systems Comments:: 05/07/19 20:43 GENERAL/CONSTITUTIONAL: +fever, chills. +headache HEAD, EYES, EARS, NOSE AND THROAT: No change in vision. No ear pain or discharge. No sore throat. CARDIOVASCULAR: No chest pain or shortness of breath. RESPIRATORY: No cough, wheezing, or hemoptysis. GASTROINTESTINAL: No nausea, vomiting, diarrhea or constipation. MUSCULOSKELETAL: No joint or muscle swelling or pain. No neck or back pain. SKIN: No rash NEUROLOGIC: No vertigo, loss of consciousness, or change in strength/sensation. *Physical Exam - Physical Exam 05/07/19 20:44 GENERAL: Awake, alert, and fully oriented, in no acute distress EYES: PERRLA, EOMI, sclera anicteric, conjunctiva clear ENT: Auricles normal inspection, hearing grossly normal, nares patent, oropharynx clear without exudates. Moist mucosa NECK: Normal ROM, supple, no lymphadenopathy, JVD, or masses LUNGS: Breath sounds equal, clear to auscultation bilaterally. No wheezes, and no crackles HEART: Regular rate and rhythm, normal S1 and S2, no murmurs, rubs or gallops ABDOMEN: Soft, nontender, normoactive bowel sounds. No guarding, no rebound. No masses NEUROLOGICAL: Cranial nerves II through XII grossly intact. Normal speech, normal gait SKIN: Warm, Dry, normal turgor, no rashes or lesions noted. Medical Decision Making - Medical Decision Making 05/08/19 06:45 typical migraine induced by URI imporved afer reglan/ dex Discharge - Discharge Information Problems reviewed: Yes Clinical Impression/Diagnosis: Migraine Qualifiers: Migraine type: without aura Status migrainosus presence: without status migrainosus Intractability: not intractable Qualified Code(s): G43.009 - Migraine without aura, not intractable, without status migrainosus Condition: Stable Disposition: HOME - Follow up/Referral - Patient Discharge Instructions Patient Printed Discharge Instructions: DI for Migraine - Post Discharge Activity Work/Back to School Note: Back to Work
== END 2019-05-07 22:28 | disposition home or self-care (01) ==
LOC: FER 20:38
DX: G43.009 Migraine without aura, not intractable, without status migrainosus (principal)
CPT/HCPCS: 99281-25; J1100

== ENCOUNTER 2020-01-22 20:08 | Emergency (ER) | payer OTHER ==
[2020-01-22 20:15] VITALS: BP 122/78; PULSE 78; TEMP 97.8; BMI 24.9
[2020-01-22] MEDS ORDERED: KETOROLAC TROMETHAMINE 30 MG/1 ML VIAL IM ONE (20:42)
[2020-01-22] MEDS ORDERED: KETOROLAC TROMETHAMINE 30 MG/1 ML VIAL ONE (20:44)
--- NOTE | 2020-01-22 20:57 | PDOC ---
Documentation entered by Jono Domingo SCRIBE, acting as scribe for Meagan Duong MD. Meagan Duong MD: This documentation has been prepared by the scribe, Jono Domingo SCRIBE, under my direction and personally reviewed by me in its entirety. I confirm that the documentation accurately reflects all work, treatment, procedures, and medical decision making performed by me. 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 The patient reports her pain begins in her right foot then spreads to her left foot and is worsened over the weekend and beginning of the week. She endorses pain is approximately located in her fifth metatarsal. The patient notes occasional relief while wearing shoes. She notes taking Tylenol and Motrin at noon to no relief. denies f/c has noted mild swelling on bottom of right foot.. no injuries. no f/c no leg swelling. no h/o known gout or arthritis. has not changed activity recently l. does have h/o plantar fascitis but states pain is different from that. worse on weekends. The patient denies chest/abdominal/back pain, cough, and shortness of breath. Denies fever, chills, nausea, vomiting, and/or any GI symptoms. Denies any symptoms. Denies any other symptoms. Allergies: NKDA Surgical Hx: liposuction 01/22/20 20:53 Past History - Medical History Allergies/Adverse Reactions: Allergies Allergy/AdvReac Type Severity Reaction Status Date / Time No Known Allergies Allergy Verified 01/22/20 20:10 Home Medications: Ambulatory Orders NK [No Known Home Medication] 05/07/19 COPD: No - Reproductive History Is Patient Now?: No Polycystic Ovaries: Yes Therapeutic (s) & number: No - Immunization History Immunization Up to Date: Yes - Psycho-Social/Smoking History Smoking Status: No Smoking History: Never smoked Have you smoked in the past 12 months: No Number of Cigarettes Smoked Daily: 4 Information on smoking cessation initiated: No 'Breaking Loose' booklet given: 12/06/17 - Substance Abuse Hx (Audit-C & DAST Scrn) How often the patient has a drink containing alcohol: Never Score: In Men: 4 or > Positive; In Women: 3 or > Positive: 0 Screen Result (Pos requires Nsg. Audit-10AR): Negative In the last yr the pt used illegal drug/Rx for NonMed reason: No Score: Yes response is considered Positive: 0 Screen Result (Positive result requires Nsg. DAST-10): Negative Review of Systems - Review of Systems Able to Perform ROS?: Yes Comments:: 01/22/20 20:32 GENERAL/CONSTITUTIONAL: No fever or chills. No weakness. HEAD, EYES, EARS, NOSE AND THROAT: No change in vision. No ear pain or discharge. No sore throat. CARDIOVASCULAR: No chest pain or shortness of breath. RESPIRATORY: No cough, wheezing, or hemoptysis. GASTROINTESTINAL: No nausea, vomiting, diarrhea or constipation. GENITOURINARY: No dysuria, frequency, or change in urination. MUSCULOSKELETAL: +bilateral feet pain. No neck or back pain. SKIN: No rash NEUROLOGIC: No headache, vertigo, loss of consciousness, or change in strength/sensation. ENDOCRINE: No increased thirst. No abnormal weight change. HEMATOLOGIC/LYMPHATIC: No anemia, easy bleeding, or history of blood clots. ALLERGIC/IMMUNOLOGIC: No hives or skin allergy. All Other Systems: Reviewed and Negative *Physical Exam - Vital Signs Last Vital Signs Temp Pulse Resp BP Pulse Ox 97.8 F 78 18 122/78 98 01/22/20 20:10 01/22/20 20:10 01/22/20 20:10 01/22/20 20:10 01/22/20 20:10 - Physical Exam 01/22/20 20:55 Patient is awake alert no acute distress lungs are clear heart is regular with no murmurs or gallops examination of bilateral feet demonstrates the right foot with mild tenderness over the lateral dorsum of the fifth metatarsal there is minimal swelling on the plantar surface noted no ecchymosis no bruising no medial or lateral malleoli or tenderness patient has 2+ DP PT pulses are vastly intact full range of motion at the ankle. Examination of the left foot demonstrates no tenderness bilateral medial or lateral malleolus. Minimal tenderness over the dorsum of the left foot however no noted swelling ecchymosis or deformity 2+ DP PT pulses in that foot as well and neurovascular intact knees and hips are full range of motion nontender examination of the upper extremity demonstrates no hand swelling or tenderness Medical Decision Making - Medical Decision Making 01/22/20 20:56 39-year-old female here complaining of bilateral foot pain worse in the right f oot with tenderness over the fifth metatarsal seems to be shoe dependent. Denies any injuries Differential includes stress fracture tendinitis fasciitis plan x-ray of the right foot as well as the left foot and ankle Toradol for pain ice elevation recommended good supporting shoe likely follow-up with materials assistant 01/22/20 21:36 X-rays negative for fracture based on my exam concerns for tendinitis will discharge home with follow-up with podiatry told to ice elevate and stay off her feet will be given a work note for 48 hours told to return for any worsening pain take Motrin 600 mg every 8 hours as needed good supportive shoe Discharge - Discharge Information Problems reviewed: Yes Clinical Impression/Diagnosis: Foot pain, right, Tendonitis Condition: Stable Disposition: HOME - Admission No - Follow up/Referral Referrals: Jarett Dawkins [Non Staff, Medical] - Mark Morton MD [Non Staff, Medical] - - Patient Discharge Instructions Patient Printed Discharge Instructions: Metatarsalgia, DI for Foot Pain Additional Instructions: you should ice and elevate your feet to reduce swelling. wear a good supportive shoe. you should follow up with a materials assistant see referral call to schedule as needed. - Post Discharge Activity Work/Back to School Note: Back to Work
== END 2020-01-22 21:40 | disposition home or self-care (01) ==
LOC: FER 20:08
PROC: 3E0233Z Introduction of Anti-inflammatory into Muscle, Percutaneous Approach (ICD-10-PCS; principal; 2020-01-22)
DX: M79.671 Pain in right foot (principal)
CPT/HCPCS: 73610-TC-LT-FY; 73630-TC-LT; 73630-TC-RT-FY; 99284-25

== ENCOUNTER 2020-02-06 21:30 | Emergency (ER) | payer OTHER ==
[2020-02-06] MEDS ORDERED: KETOROLAC TROMETHAMINE 15 MG/ML VIAL IVPUSH ONE (21:33)
[2020-02-06 21:37] VITALS: BP 144/92; PULSE 80; TEMP 98.1; BMI 24.9
[2020-02-06 22:03] LABS: BASO % 0.6 % (0-2.0); EOS % 2.1 % (0-4.5); HEMATOCRIT 41.7 % (32.4-45.2); LYMPH % 31.1 % (8-40); MCHC 33.5 g/dl (32.0-36.0); MEAN CELL VOLUME 89.4 fl (80-96); MEAN PLT VOLUME 10.9 fl (7.5-11.1); MONO % 7.8 % (3.8-10.2); NEUT % 58.4 % (42.8-82.8); PLATELET COUNT 295 K/MM3 (134-434); RBC 4.67 M/mm3 (3.60-5.2); RDW 13.1 % (11.6-15.6); WHITE BLOOD COUNT 13.5 K/mm3 (4.0-10.8)
--- NOTE | 2020-02-06 22:07 | PDOC ---
History of Present Illness - General Chief Complaint: Pain Stated Complaint: shaye pain Time Seen by Provider: 02/06/20 21:31 History Source: Patient Exam Limitations: No Limitations - History of Present Illness Initial Comments: 02/06/20 22:00 39 yo F h/o kidney stones p/w RUQ pain, constant x5 days, worsening. Reports pain is worse after eating and hasn't been able to eat much for the past 2-3 days. Admits to nausea today but no vomiting. No diarrhea/constipation. Took pepcid at home without relief. No urinary complaints. States this does not feel similar to previous kidney stones. ~7 years ago had similar pain but was much less severe, had RUQ sono done at that time which showed GB sludge. No fevers. No cough, CP, or SOB. Past History - Medical History Allergies/Adverse Reactions: Allergies Allergy/AdvReac Type Severity Reaction Status Date / Time No Known Allergies Allergy Verified 02/06/20 21:31 Home Medications: Ambulatory Orders NK [No Known Home Medication] 05/07/19 COPD: No - Reproductive History Is Patient Now?: No Polycystic Ovaries: Yes Therapeutic (s) & number: No - Immunization History Immunization Up to Date: Yes - Psycho-Social/Smoking History Smoking Status: No Smoking History: Current every day smoker Have you smoked in the past 12 months: Yes Number of Cigarettes Smoked Daily: 4 Information on smoking cessation initiated: Yes 'Breaking Loose' booklet given: 01/22/20 - Substance Abuse Hx (Audit-C & DAST Scrn) How often the patient has a drink containing alcohol: Never Score: In Men: 4 or > Positive; In Women: 3 or > Positive: 0 Screen Result (Pos requires Nsg. Audit-10AR): Negative In the last yr the pt used illegal drug/Rx for NonMed reason: No Score: Yes response is considered Positive: 0 Screen Result (Positive result requires Nsg. DAST-10): Negative Review of Systems - Review of Systems Able to Perform ROS?: Yes Comments:: 02/06/20 22:03 GENERAL/CONSTITUTIONAL: No fever or chills. No weakness. HEAD, EYES, EARS, NOSE AND THROAT: No change in vision. No ear pain or discharge. No sore throat. CARDIOVASCULAR: No chest pain or shortness of breath. RESPIRATORY: No cough, wheezing, or hemoptysis. GASTROINTESTINAL: as per HPI GENITOURINARY: No dysuria, frequency, or change in urination. MUSCULOSKELETAL: No joint or muscle swelling or pain. No neck or back pain. SKIN: No rash. NEUROLOGIC: No headache, vertigo, loss of consciousness, or change in strength/sensation. ENDOCRINE: No increased thirst. No abnormal weight change. HEMATOLOGIC/LYMPHATIC: No anemia, easy bleeding, or history of blood clots. ALLERGIC/IMMUNOLOGIC: No hives or skin allergy. *Physical Exam - Vital Signs Last Vital Signs Temp Pulse Resp BP Pulse Ox 98.1 F 80 20 144/92 100 02/06/20 21:30 02/06/20 21:30 02/06/20 21:30 02/06/20 21:30 02/06/20 21:30 - Physical Exam 02/06/20 22:04 GENERAL: uncomfortable appearing, pleasant female, appears younger than stated age HEENT: NCAT, conjunctiva not injected NECK: Normal ROM, supple LUNGS: CTAB. Good air entry. No wheezes, No Rhonchi and no crackles HEART: RRR, + s1 s2, no murmurs, rubs or gallops ABDOMEN: Soft, normoactive bowel sounds. +RUQ ttp, +sewell's, No guarding, no rebound. No masses BACK: no midline or paraspinal tenderness. No CVA tenderness. EXTREMITIES: Warm and well perfused. No LE edema. FROM. No clubbing or cyanosis. No cords, erythema, or tenderness NEUROLOGICAL: Aox3, Speech fluent, face symmetric, tongue/uvula midline. Sensation grossly intact to light touch. Ambulatory with steady gait. Strength i ntact. No focal deficits. SKIN: Warm, dry, normal turgor, no rashes or lesions noted. ED Treatment Course - LABORATORY CBC & Chemistry Diagram: 02/06/20 21:40 02/06/20 21:38 - RADIOLOGY Radiology Studies Ordered: Category Date Time Status ABDOMEN US [US] Stat Ultrasound 02/06/20 21:32 Ordered - Medications Given in the ED: ED Medications Discontinued Medications Generic Name Dose Route Start Last Admin Trade Name Freq PRN Reason Stop Dose Admin Ketorolac Tromethamine 15 mg 02/06/20 21:33 02/06/20 21:43 Toradol Injection - IVPUSH 02/06/20 21:34 Not Given ONCE ONE Medical Decision Making - Medical Decision Making 02/06/20 22:05 39 yo F with RUQ pain, +sewell's on exam concerning for Gb pathology, acute choley vs. biliary colic vs. lower suspicion for cholodocolithiasis or cholangitis. Also lower suspicion for pancreatitis or kidney stones. Plan: -labs -RUQ sono -patient deferred pain medication at this time -reassess This clinical encounter is taking place during a federal and state health care emergency attributable to the novel Bass Virus pandemic. The [place] of the Department of Health and Human Services has declared, pursuant to the Public Health Service Act 319F-3 (42 U.S[place]C. 247d-6d), that a covered persons activities related to medical countermeasures against COVID-19 will be immune from liability under Federal and State law. 02/06/20 23:38 Labs and imaging reviewed. Likely biliary colic. Given +sonographic sewell's discussed admission with patient however patient requesting to go home to f/u as outpatient with Dr. Chung. Agreed to return to the ED for new or worsening sy mptoms. Discharge - Discharge Information Problems reviewed: Yes Clinical Impression/Diagnosis: Biliary colic Condition: Stable Disposition: HOME - Admission No - Follow up/Referral - Patient Discharge Instructions Patient Printed Discharge Instructions: DI for Gallstones Additional Instructions: You should follow up with Dr. Chung. Return to the ED for new or worsening symptoms. - Post Discharge Activity Work/Back to School Note: Back to Work
[2020-02-06 22:15] LABS: ALBUMIN 4.1 g/dl (3.4-5.0); BILIRUBIN,TOTAL 0.2 mg/dl (0.2-1); CALCIUM 9.1 mg/dl (8.5-10); CREATININE 0.7 mg/dl (0.55-1.3); POTASSIUM 4.1 mmol/L (3.5-5.1); TOT PROT 7.2 g/dl (6.4-8.2)
[2020-02-07 00:15] LABS: ACTIVATED PTT 33.5 SECONDS (25.2-36.5); INR 0.97 (0.83-1.09); PROTHROMBIN TIME (PATIENT) 11.4 SEC (9.7-13.0)
[2020-02-07 00:35] LABS: LIPASE 210 U/L (73-393)
== END 2020-02-06 23:44 | disposition home or self-care (01) ==
LOC: FER 21:30
DX: K80.42 Calculus of bile duct with acute cholecystitis without obstruction (principal)
CPT/HCPCS: 36415; 76705-TC; 80053; 81003; 83690; 84702; 85025; 85610; 85730; 86850; 86900; 86901; 87086; 99284-25

== ENCOUNTER 2020-02-07 16:27 | Emergency (ER) | payer OTHER ==
--- NOTE | 2020-02-07 16:35 | PDOC ---
Rapid Medical Evaluation Chief Complaint: Pain, Acute Time Seen by Provider: 02/07/20 16:31 Medical Evaluation: Allergies Allergy/AdvReac Type Severity Reaction Status Date / Time No Known Allergies Allergy Verified 02/06/20 21:31 02/07/20 16:34 CC: ruq since wednesday worse after meals, seen at ED had neg u/s and labs, here today for repeat labs, u/s and poss ct Exam: ruq pain, vss Plan: labs, u/s, iv Discharge Disposition - Diagnosis Right sided abdominal pain - Discharge Dispostion Condition at time of disposition: Stable - Referrals - Patient Instructions - Post Discharge Activity
[2020-02-07 16:40] VITALS: BP 147/94; PULSE 89; TEMP 98.7; BMI 24.9
[2020-02-07] MEDS ORDERED: LACTATED RINGERS SOLUTION 1000 ML INFUS.BAG IV ONE (16:58)
--- NOTE | 2020-02-07 17:24 | PDOC ---
*Physical Exam - Vital Signs Last Vital Signs Temp Pulse Resp BP Pulse Ox 98.7 F 89 16 147/94 99 02/07/20 16:31 02/07/20 16:31 02/07/20 16:31 02/07/20 16:31 02/07/20 16:31 - Physical Exam 02/07/20 17:59 Gen: aaox3, nad abd: soft, RUQ and R mid abd ttp, no rebound or guarding ED Treatment Course - LABORATORY CBC & Chemistry Diagram: 02/07/20 17:40 02/07/20 17:40 - RADIOLOGY Radiology Studies Ordered: Category Date Time Status ABDOMEN & PELVIS CT WITH CONTR [CT] Stat CT Scan 02/07/20 16:59 Ordered Medical Decision Making - Medical Decision Making 02/07/20 18:00 a/p: 39yo female with R sided abd pain -had an contracted gb ultrasound yesterday that poss showed stones -repeat POCUS today without stones -will send labs, ua, ct abd/pelvis, repeat ultrasound -will monitor and reassess 02/07/20 18:53 contracted gb wbc 11 down from 13 02/07/20 20:55 no acute findings on ct stable for dc to home discussed ct findings with the patient known nephrolithiasis no appy Discharge - Discharge Information Problems reviewed: Yes Clinical Impression/Diagnosis: Right sided abdominal pain Condition: Stable Disposition: HOME - Follow up/Referral Referrals: rJ Chung MD [Staff Physician] - - Patient Discharge Instructions Patient Printed Discharge Instructions: DI for Abdominal Pain-Adult Additional Instructions: Your seen for your abdominal pain today. Your ultrasound showed you have a contracted gallbladder. This could be the source of your pain. You also had a CT done of your abdomen. We will call you with your results. Please eat a bland diet low in fat to avoid worsening abdominal pain. Please follow-up with Dr. Chung tomorrow. Return to the ER for worsening pain, fever, vomiting or if you have any changes in your symptoms - Post Discharge Activity Work/Back to School Note: Back to Work
--- NOTE | 2020-02-07 17:29 | PDOC ---
History of Present Illness - General Chief Complaint: Pain, Acute Stated Complaint: ABDOMINAL PAIN Time Seen by Provider: 02/07/20 16:31 History Source: Patient Exam Limitations: No Limitations Past History - Travel History Traveled outside of the country in the last 30 days: No Close contact w/someone who was outside of country & ill: No - Medical History Allergies/Adverse Reactions: Allergies Allergy/AdvReac Type Severity Reaction Status Date / Time No Known Allergies Allergy Verified 02/06/20 21:31 Home Medications: Ambulatory Orders NK [No Known Home Medication] 05/07/19 COPD: No - Reproductive History Is Patient Now?: No Polycystic Ovaries: Yes Therapeutic (s) & number: No - Immunization History Immunization Up to Date: Yes - Psycho-Social/Smoking History Smoking Status: No Smoking History: Current every day smoker Have you smoked in the past 12 months: Yes Number of Cigarettes Smoked Daily: 5 Information on smoking cessation initiated: No 'Breaking Loose' booklet given: 01/22/20 - Substance Abuse Hx (Audit-C & DAST Scrn) How often the patient has a drink containing alcohol: Never Score: In Men: 4 or > Positive; In Women: 3 or > Positive: 0 Screen Result (Pos requires Nsg. Audit-10AR): Negative In the last yr the pt used illegal drug/Rx for NonMed reason: No Score: Yes response is considered Positive: 0 Screen Result (Positive result requires Nsg. DAST-10): Negative Review of Systems - Review of Systems Able to Perform ROS?: Yes Comments:: 02/07/20 21:53 CONSTITUTIONAL: Absent: fever, chills, diaphoresis, generalized weakness, malaise, loss of appetite HEENT: Absent: rhinorrhea, nasal congestion, throat pain, throat swelling, difficulty swallowing, mouth swelling, ear pain, eye pain, visual Changes CARDIOVASCULAR: Absent: chest pain, loss of consciousness, palpitations, irregular heart rate, peripheral edema RESPIRATORY: Absent: cough, shortness of breath, dyspnea with exertion, orthopnea, wheezing, stridor, hemoptysis GASTROINTESTINAL: Absent: abdominal pain, abdominal distension, nausea, vomiting, diarrhea, constipation, melena, hematochezia GENITOURINARY: Absent: dysuria, frequency, urgency, hesitancy, hematuria, flank pain, genital pain MUSCULOSKELETAL: Absent: myalgia, arthralgia, joint swelling SKIN: Absent: rash, itching, pallor HEMATOLOGIC/IMMUNOLOGIC: Absent: easy bleeding, easy bruising, lymphadenopathy, frequent infections ENDOCRINE: Absent: unexplained weight gain, unexplained weight loss, heat intolerance, cold intolerance NEUROLOGIC: Absent: headache, focal weakness or paresthesias, dizziness, unsteady gait, seizure, mental status changes, bladder or bowel incontinence PSYCHIATRIC: Absent: anxiety, depression, suicidal or homicidal ideation, hallucinations. Is the patient limited Malay proficient: No *Physical Exam - Vital Signs Last Vital Signs Temp Pulse Resp BP Pulse Ox 98.7 F 89 16 147/94 99 02/07/20 16:31 02/07/20 16:31 02/07/20 16:31 02/07/20 16:31 02/07/20 16:31 - Physical Exam 02/07/20 21:53 GENERAL: Well developed, well nourished. Awake and alert. No acute distress. HEENT: Normocephalic, atraumatic. PERRLA, EOMI. No conjunctival pallor. Sclera are non- icteric. Moist mucous membranes. Oropharynx is clear. NECK: Supple. Full ROM. No JVD. Carotid pulses 2+ and symmetric, without bruits. No thyromegaly. No lymphadenopathy. CARDIOVASCULAR: Regular rate and rhythm. No murmurs, rubs, or gallops. Distal pulses are 2+ and symmetric. PULMONARY: No evidence of respiratory distress. Lungs clear to auscultation bilaterally. No wheezing, rales or rhonchi. ABDOMINAL: Soft. Non-tender. Non-distended. No rebound or guarding. No organomegaly. Normoactive bowel sounds. MUSCULOSKELETAL Normal range of motion at all joints. No bony deformities or tenderness. No CVA tenderness. EXTREMITIES: No cyanosis. No clubbing. No edema. No calf tenderness. SKIN: Warm and dry. Normal capillary refill. No rashes. No jaundice. NEUROLOGICAL: Alert, awake, appropriate. Cranial nerves 2-12 intact. No deficits to light touch and temperature in face, upper extremities and lower extremities. No motor deficits in the in face, upper extremities and lower extremities. Normoreflexic in the upper and lower extremities. Normal speech. Toes are down-going bilaterally. Gait is normal without ataxia. PSYCHIATRIC: Cooperative. Good eye contact. Appropriate mood and affect. ED Treatment Course - LABORATORY CBC & Chemistry Diagram: 02/07/20 17:40 02/07/20 17:40 Discharge - Discharge Information Clinical Impression/Diagnosis: Right sided abdominal pain Condition: Stable Disposition: HOME - Admission No - Follow up/Referral Referrals: Jr Chung MD [Staff Physician] - - Patient Discharge Instructions Patient Printed Discharge Instructions: DI for Abdominal Pain-Adult Additional Instructions: Your seen for your abdominal pain today. Your ultrasound showed you have a contracted gallbladder. This could be the source of your pain. You also had a CT done of your abdomen. We will call you with your results. Please eat a bland diet low in fat to avoid worsening abdominal pain. Please follow-up with Dr. Chung tomorrow. Return to the ER for worsening pain, fever, vomiting or if you have any changes in your symptoms - Post Discharge Activity Work/Back to School Note: Back to Work
[2020-02-07 18:13] LABS: BASO % 1.1 % (0-2.0); EOS % 2.2 % (0-4.5); HEMOGLOBIN 14.1 GM/dL (10.7-15.3); LYMPH % 27.9 % (8-40); MCH 29.5 pg (25.7-33.7); MCHC 33.6 g/dl (32.0-36.0); MEAN CELL VOLUME 87.8 fl (80-96); MEAN PLT VOLUME 11.2 fl (7.5-11.1); MONO % 6.8 % (3.8-10.2); PLATELET COUNT 266 K/MM3 (134-434); RBC 4.78 M/mm3 (3.60-5.2); RDW 13.9 % (11.6-15.6); WHITE BLOOD COUNT 11.7 K/mm3 (4.0-10.0)
[2020-02-07 18:44] LABS: ALBUMIN 3.8 g/dl (3.4-5.0); BILIRUBIN,TOTAL 0.2 mg/dL (0.2-1); BLOOD UREA NITROGEN 12.7 mg/dL (7-18); CALCIUM 9.8 mg/dL (8.5-10.1); CREATININE 0.7 mg/dL (0.55-1.3); POTASSIUM 4.1 mmol/L (3.5-5.1); TOT PROT 7.5 g/dl (6.4-8.2)
[2020-02-07 20:07] LABS: HCG,QUALITATIVE URINE Negative
[2020-02-07 21:07] LABS: PH,URINE 5.5 (5.0-8.0); URINE APPEARANCE CLEAR; URINE BILIRUBIN NEGATIVE (NEGATIVE); URINE COLOR YELLOW; URINE GLUCOSE (UA) NEGATIVE (NEGATIVE); URINE KETONE NEGATIVE (NEGATIVE); URINE LEUK ESTERASE NEGATIVE (NEGATIVE); URINE NITRITE NEGATIVE (NEGATIVE); URINE PROTEIN NEGATIVE (NEGATIVE); URINE UROBILINOGEN 0.2 mg/dL (0.2-1.0)
== END 2020-02-07 21:00 | disposition home or self-care (01) ==
LOC: JER 16:27
DX: R10.9 Unspecified abdominal pain (principal)
CPT/HCPCS: 36415; 74177-TC; 76705-TC; 80053; 81003; 83690; 84703; 85025; 99285-25; Q9967

== ENCOUNTER 2020-06-28 10:38 | Emergency (ER) | payer OTHER, BC | END 2020-06-28 12:13 | disposition home or self-care (01) | LOC: JVIRT 10:38 | DX: Z11.52 Encounter for screening for COVID-19 (principal) | CPT/HCPCS: C9803; G2251-GT; Q3014-GT; U0003 ==

== ENCOUNTER 2020-07-08 15:18 | Emergency (ER) | payer OTHER, BC | END 2020-07-08 16:53 | disposition home or self-care (01) | LOC: JVIRT 15:18 | DX: Z20.822 Contact with and (suspected) exposure to COVID-19 (principal) | CPT/HCPCS: 36415; 86769; C9803; G2012-GT; U0003 ==

== ENCOUNTER 2021-08-17 17:31 | Emergency (ER) | payer BC ==
[2021-08-17 17:37] VITALS: BMI 25.7
[2021-08-17] MEDS ORDERED: SODIUM CHLORIDE 0.9% 1000 ML INFUS.BAG IV ONE (17:45)
[2021-08-17] MEDS ORDERED: ACETAMINOPHEN 1000 MG/100 ML BAG IVPB ONE (17:45)
[2021-08-17] MEDS ORDERED: ACETAMINOPHEN INJECTION 100 ML IVPB ONE (17:54)
[2021-08-17 18:20] LABS: ALBUMIN 4.5 g/dl (3.4-5.0); BILIRUBIN,TOTAL 0.2 mg/dl (0.2-1); CALCIUM 10.1 mg/dl (8.5-10); CREATININE 0.8 mg/dl (0.55-1.3); TOT PROT 8.1 g/dl (6.4-8.2)
[2021-08-17 18:52] LABS: BASO % 0.5 % (0-2.0); EOS % 0.8 % (0-4.5); HEMATOCRIT 42.1 % (32.4-45.2); HEMOGLOBIN 14.1 GM/dL (10.7-15.3); LYMPH % 6.3 % (8-40); MCH 29.2 pg (25.7-33.7); MCHC 33.5 g/dl (32.0-36.0); MEAN CELL VOLUME 87.3 fl (80-96); MEAN PLT VOLUME 10.5 fl (7.5-11.1); MONO % 7.4 % (3.8-10.2); PLATELET COUNT 239 10^3/uL (134-434); RBC 4.82 M/mm3 (3.60-5.2); RDW 13.3 % (11.6-15.6)
[2021-08-17 19:29] VITALS: BP 136/92; PULSE 111; TEMP 99.6
== END 2021-08-17 20:00 | disposition home or self-care (01) ==
LOC: FER 17:31
PROC: 3E033GC Introduction of Other Therapeutic Substance into Peripheral Vein, Percutaneous Approach (ICD-10-PCS; principal; 2021-08-17)
DX: G43.909 Migraine, unspecified, not intractable, without status migrainosus (principal); R50.9 Fever, unspecified
CPT/HCPCS: 36415; 70450-TC; 80053; 85025; 99285-25

== ENCOUNTER 2021-08-24 17:54 | Emergency (ER) | payer BC ==
[2021-08-24] MEDS ORDERED: ONDANSETRON 4 MG/2 ML VIAL IVPUSH ONE (17:58)
[2021-08-24] MEDS ORDERED: FAMOTIDINE 20 MG/50 ML IVPB 20 MG/50 ML MG IVPB ONE ×2 (17:58→18:09)
[2021-08-24] MEDS ORDERED: KETOROLAC TROMETHAMINE 15 MG/ML VIAL IVPUSH ONE (17:58)
[2021-08-24] MEDS ORDERED: SODIUM CHLORIDE 0.9% 1000 ML INFUS.BAG IV ONE (17:58)
[2021-08-24] MEDS ORDERED: MECLIZINE HCL 25 MG TABLET (FP) PO ONE (17:59)
[2021-08-24 18:05] VITALS: BP 154/111; PULSE 117; TEMP 98
[2021-08-24] MEDS ORDERED: MECLIZINE HCL 25 MG TABLET (FP) ONE (18:09)
[2021-08-24] MEDS ORDERED: ONDANSETRON 4 MG/2 ML VIAL ONE (18:09)
[2021-08-24] MEDS ORDERED: KETOROLAC TROMETHAMINE 15 MG/ML VIAL ONE (18:09)
[2021-08-24 18:53] VITALS: BMI 25.7
[2021-08-24 18:59] LABS: ALBUMIN 3.9 g/dl (3.4-5.0); BILIRUBIN,TOTAL 0.3 mg/dl (0.2-1); CALCIUM 9.7 mg/dl (8.5-10); CREATININE 0.6 mg/dl (0.55-1.3); TOT PROT 7.1 g/dl (6.4-8.2)
[2021-08-24 20:04] LABS: BASO % 0.4 % (0-2.0); EOS % 1.4 % (0-4.5); HEMATOCRIT 38.3 % (32.4-45.2); HEMOGLOBIN 13.1 GM/dL (10.7-15.3); LYMPH % 29.9 % (8-40); MCH 29.2 pg (25.7-33.7); MCHC 34.2 g/dl (32.0-36.0); MEAN CELL VOLUME 85.4 fl (80-96); MEAN PLT VOLUME 10.5 fl (7.5-11.1); MONO % 5.9 % (3.8-10.2); NEUT % 62.4 % (42.8-82.8); PLATELET COUNT 220 10^3/uL (134-434); RBC 4.49 M/mm3 (3.60-5.2); RDW 13.4 % (11.6-15.6); WHITE BLOOD COUNT 11.3 K/mm3 (4.0-10.0)
[2021-08-26 16:10] LABS: SARS-CoV-2 NAA Not Detected (Not Detected)
== END 2021-08-24 20:24 | disposition home or self-care (01) ==
LOC: FER 17:54
PROC: 3E033GC Introduction of Other Therapeutic Substance into Peripheral Vein, Percutaneous Approach (ICD-10-PCS; principal; 2021-08-24)
DX: B34.9 Viral infection, unspecified (principal)
CPT/HCPCS: 36415; 80053; 84703; 85025; 87040; 87804; 99284-25; C9803-CS; U0003; U0005

== ENCOUNTER 2022-01-15 18:04 | Emergency (ER) | payer BC ==
[2022-01-15] MEDS ORDERED: ACETAMINOPHEN 1000 MG/100 ML BAG IVPB ONE (18:09)
[2022-01-15] MEDS ORDERED: SODIUM CHLORIDE 0.9% 500 ML INFUS.BAG IV ONE (18:09)
[2022-01-15 18:11] VITALS: BMI 25.7
[2022-01-15] MEDS ORDERED: ACETAMINOPHEN INJECTION 100 ML IVPB ONE (18:13)
[2022-01-15 18:32] LABS: HEMATOCRIT 39.8 % (32.4-45.2); HEMOGLOBIN 14.1 G/dL (10.7-15.3); MCHC 35.4 g/dl (32.0-36.0); MEAN CELL VOLUME 87.6 fl (80-96); MEAN PLT VOLUME 9.9 fl (7.5-11.1); PLATELET COUNT 300.2 10^3/uL (134-434); RBC 4.54 10^6/uL (3.60-5.2); RDW 14.3 % (11.6-15.6); WHITE BLOOD COUNT 14.2 10^3/uL (4.0-10.8)
[2022-01-15] MEDS ORDERED: KETOROLAC TROMETHAMINE 15 MG/ML VIAL ONE ×2 (18:34→19:21)
[2022-01-15] MEDS ORDERED: MAG HYDROX/AL HYDROX/SIMETH 30 ML UNIT-DOSE CUP ONE (18:34)
[2022-01-15 18:43] LABS: ALBUMIN 3.9 g/dl (3.4-5.0); BILIRUBIN,TOTAL 0.4 mg/dl (0.2-1); CALCIUM 9.8 mg/dl (8.5-10); CREATININE 0.7 mg/dl (0.55-1.3); MAGNESIUM 1.7 mg/dL (1.8-2.4); TOT PROT 7.3 g/dl (6.4-8.2)
[2022-01-15 18:45] LABS: INR 1.04 (0.83-1.09)
[2022-01-15 18:46] LABS: PLATELET ESTIMATE ADEQUATE
[2022-01-15] MEDS ORDERED: KETOROLAC TROMETHAMINE 30 MG/1 ML VIAL IVPUSH ONE (19:23)
[2022-01-15 20:04] LABS: HCG,QUALITATIVE URINE Negative
[2022-01-15 20:30] VITALS: BP 118/74; PULSE 82; RESP 18; TEMP 98.7
== END 2022-01-15 20:45 | disposition home or self-care (01) ==
LOC: FER 18:04
PROC: 3E0333Z Introduction of Anti-inflammatory into Peripheral Vein, Percutaneous Approach (ICD-10-PCS; principal; 2022-01-15)
PROC: 3E0333Z Introduction of Anti-inflammatory into Peripheral Vein, Percutaneous Approach (ICD-10-PCS; 2022-01-15)
DX: R10.31 Right lower quadrant pain (principal)
CPT/HCPCS: 36415; 76830-TC; 80053; 81003; 83605; 83735; 84703; 85027; 85610; 86850; 86900; 86901; 87086; 99284-25

== ENCOUNTER 2022-04-23 19:48 | Emergency (ER) | payer OTHER, BC ==
[2022-04-23 20:03] VITALS: BP 131/89; PULSE 88; RESP 20; TEMP 98.2; BMI 25.0
== END 2022-04-23 21:11 | disposition home or self-care (01) ==
LOC: FER 19:48
DX: S63.92XA Sprain of unspecified part of left wrist and hand, initial encounter (principal); W50.2XXA Accidental twist by another person, initial encounter
CPT/HCPCS: 73130-TC-LT-FY; 99283-25

== ENCOUNTER → 2023-01-31 | Emergency (ER) | payer BC ==
[~2023-01-31] MED LIST: ASPIRIN 81 MG CHEWABLE TABLETS ONE; ASPIRIN 81 MG CHEWABLE TABLETS PO ONE; ATORVASTATIN CA 80 MG TABLET (FP) ONE; ATORVASTATIN CA 80 MG TABLET (FP) PO ONE; FAMOTIDINE 20 MG/50 ML IVPB 20 MG/50 ML MG IVPB ONE; HEPARIN NA (PORCINE) 5,000 UNITS/ML 1ML VIAL IVPUSH PRN; HEPARIN NA (PORCINE) 5,000 UNITS/ML 1ML VIAL ONE; ONDANSETRON 4 MG/2 ML VIAL IVPUSH ONE; SODIUM CHLORIDE 0.9% 1000 ML INFUS.BAG IV ONE; TICAGRELOR 90 MG TABLET PO ONE; morphine CARPU-JECT 2 MG/1 ML DISP.SYRIN IVPUSH ONE; morphine CARPU-JECT 4 MG/1 ML DISP.SYRIN IVPUSH ONE; morphine SULFATE 4 MG/ML VIAL ONE
[2023-01-31 15:09] LABS: HEMATOCRIT 44.2 % (32.4-45.2); HEMOGLOBIN 14.8 G/dL (10.7-15.3); MCH 29.8 pg (25.7-33.7); MCHC 33.5 g/dl (32.0-36.0); MEAN CELL VOLUME 88.7 fl (80-96); MEAN PLT VOLUME 10.3 fl (7.5-11.1); PLATELET COUNT 367.7 10^3/uL (134-434); RBC 4.98 10^6/uL (3.60-5.2); WHITE BLOOD COUNT 18.6 10^3/uL (4.0-10.8)
[2023-01-31 15:14] VITALS: TEMP 98; BMI 25.0
[2023-01-31 15:14] LABS: INR 1.02 (0.83-1.09); PROTHROMBIN TIME (PATIENT) 11.8 SEC (9.7-13.0)
[2023-01-31 15:17] LABS: ACTIVATED PTT 30.2 SECONDS (25.2-36.5)
[2023-01-31 15:35] LABS: ALBUMIN 4.4 g/dl (3.4-5.0); CALCIUM 9.7 mg/dl (8.5-10.1); CREATININE 0.8 mg/dl (0.6-1.3); MAGNESIUM 1.8 mg/dL (1.8-2.4); POTASSIUM 3.7 mmol/L (3.5-5.1); SGOT/AST 15.4 U/L (15-37); SGPT/ALT 17.5 U/L (7-52); TOT PROT 7.2 g/dl (6.4-8.2)
[2023-01-31 15:48] VITALS: BP 157/115; PULSE 72; RESP 16
[2023-01-31 15:48] LABS: PLATELET ESTIMATE ADEQUATE
[2023-01-31 16:43] LABS: BILIRUBIN,TOTAL 0.2 mg/dL (0.2-1)
== END | disposition short-term general hospital (02) ==
LOC: FER 14:46
PROC: 3E033GC Introduction of Other Therapeutic Substance into Peripheral Vein, Percutaneous Approach (ICD-10-PCS; principal; 2023-01-31)
PROC: 3E033GC Introduction of Other Therapeutic Substance into Peripheral Vein, Percutaneous Approach (ICD-10-PCS; 2023-01-31)
PROC: 3E033GC Introduction of Other Therapeutic Substance into Peripheral Vein, Percutaneous Approach (ICD-10-PCS; 2023-01-31)
PROC: 3E033GC Introduction of Other Therapeutic Substance into Peripheral Vein, Percutaneous Approach (ICD-10-PCS; 2023-01-31)
PROC: 3E033GC Introduction of Other Therapeutic Substance into Peripheral Vein, Percutaneous Approach (ICD-10-PCS; 2023-01-31)
DX: R07.9 Chest pain, unspecified (principal); R06.02 Shortness of breath; R11.2 Nausea with vomiting, unspecified; I21.3 ST elevation (STEMI) myocardial infarction of unspecified site; Z20.822 Contact with and (suspected) exposure to COVID-19
CPT/HCPCS: 0241U-QW; 36415; 80053; 83735; 84484; 85027; 85610; 85730; 93005; 99291; J1644

== ENCOUNTER 2023-02-21 11:56 | Emergency (ER) | payer BC ==
[2023-02-21 12:05] VITALS: BP 130/84; PULSE 84; RESP 18; TEMP 99.4; BMI 22.6
== END 2023-02-21 13:19 | disposition home or self-care (01) ==
LOC: FER 11:56
DX: M79.672 Pain in left foot (principal); S93.602A Unspecified sprain of left foot, initial encounter; R07.9 Chest pain, unspecified; X58.XXXA Exposure to other specified factors, initial encounter
CPT/HCPCS: 73630-TC-LT; 99283-25

== ENCOUNTER 2024-01-17 19:47 | Emergency (ER) | payer BC ==
[2024-01-17 19:52] VITALS: BP 128/75; PULSE 78; RESP 18; TEMP 97.8; BMI 25.7
== END 2024-01-17 20:39 | disposition home or self-care (01) ==
LOC: FER 19:47
DX: R21 Rash and other nonspecific skin eruption (principal); B02.9 Zoster without complications; R05.9 Cough, unspecified
CPT/HCPCS: 99283-25